=== PATIENT | female | born 1960 | race Caucasian/White ===

== ENCOUNTER 2017-04-27 10:46 | Outpatient (CLI) | payer BC ==
--- NOTE | 2017-04-28 18:38 | Mammography Report ---
DIGITAL SCREENING MAMMOGRAM: 04/27/2017 CLINICAL INDICATION: A 57-year-old for screening. COMPARISON: 04/2016, 01/2015, 10/2013, 06/2012, 01/2011, 03/2010. TECHNIQUE: Routine CC and MLO projections were obtained of the breasts. The breasts demonstrate scattered fibroglandular densities bilaterally. Punctate, typically benign c alcifications are present. No suspicious masses, clustered microcalcifications, or regions of abigail ectural distortion are identified. IMPRESSION: BENIGN FINDINGS. RECOMMENDATION: ROUTINE ANNUAL SCREENING UNLESS OTHERWISE CLINICALLY INDICATED. BIRADS CATEGORY: 2, BENIGN FINDINGS. STANDARD QUALIFYING STATEMENTS 1. This examination was reviewed with the aid of Computed-Aided Detection (CAD). 2. A negative or benign imaging report should not delay biopsy if clinically suspicious findings are present. Consider surgical consultation if warranted. More than 5% of cancers are not identified b y imaging. 3. Dense breasts may obscure an underlying neoplasm. JOB #: [id number] EXT JOB #:[id number]
== END 2017-04-27 10:47 | disposition home or self-care (01) ==
LOC: DI 10:46
PROVIDERS: ATTEND Physician Assistant Medical
DX: Z12.31 Encounter for screening mammogram for malignant neoplasm of breast (principal)
CPT/HCPCS: 77067

== ENCOUNTER 2018-10-17 08:21 | Outpatient (CLI) | payer OTHER ==
--- NOTE | 2018-10-17 09:21 | Mammography Report ---
Reason: SCREENING MAMMO Procedure Date: 10/17/2018 Accession Number: [id number] / [id number] Procedure: IGGY - Screening Mammo w/Rubén CPT Code: FULL RESULT: EXAM: Screening Mammo w/Rubén DATE: 10/17/2018 8:46 AM CLINICAL HISTORY: Screening examination. No reported risk factors. TECHNIQUE: (B) - Bilateral CC and MLO views were obtained. COMPARISON: 04/27/2017 through 06/14/2012. PARENCHYMAL PATTERN: (F) - The breast(s) demonstrate(s) diffuse fatty replacement. FINDINGS: There are no suspicious masses, calcifications, or areas of distortion. IMPRESSION: Negative examination. BI-RADS category 1. RECOMMENDATION: (ANNUAL) - Recommend routine annual screening mammography. BI-RADS CATEGORY: (1) - Negative. STANDARD QUALIFYING STATEMENTS: 1. This examination was not reviewed with the aid of Computer-Aided Detection (CAD). 2. A negative or benign imaging report should not preclude biopsy if clinically suspicious findings are present. 3. Dense breasts may obscure an underlying neoplasm. 4. This examination was reviewed with the aid of 3D breast imaging (tomosynthesis).
== END 2018-10-17 08:22 | disposition home or self-care (01) ==
LOC: DI 08:21
DX: Z12.31 Encounter for screening mammogram for malignant neoplasm of breast (principal)
CPT/HCPCS: 77063; 77067

== ENCOUNTER 2019-08-03 09:21 | Outpatient (CLI) | payer OTHER ==
[2019-08-03 13:25] LABS: BASOPHILS # (AUTO) 0.1 10^3/uL (0.0-0.1); BASOPHILS % (AUTO) 0.8 %; EOSINOPHILS # (AUTO) 0.2 10^3/uL (0.0-0.7); EOSINOPHILS % (AUTO) 2.8 %; HGB - HEMOGLOBIN 14.3 g/dL (12.0-16.0); LYMPHOCYTES # (AUTO) 1.8 10^3/uL (1.5-3.5); LYMPHOCYTES % (AUTO) 27.8 %; MEAN CORPUSCULAR HEMOGLOBIN 28.9 pg (27.0-31.0); MEAN CORPUSCULAR HGB CONC 32.3 g/dL (32.0-36.0); MEAN CORPUSCULAR VOLUME 89.7 fL (81.0-99.0); MEAN PLATELET VOLUME 10.8 fL (7.9-10.8); MONOCYTES # (AUTO) 0.5 10^3/uL (0.0-1.0); MONOCYTES % (AUTO) 7.6 %; NEUTROPHILS # (AUTO) 3.9 10^3/uL (1.5-6.6); NEUTROPHILS % (AUTO) 60.7 %; PLT - PLATELET COUNT 193 10^3/uL (130-450); RED BLOOD COUNT 4.94 10^6/uL (4.20-5.40); RED CELL DISTRIBUTION WIDTH 11.9 % (12.0-15.0); WHITE BLOOD COUNT 6.3 x10^3/uL (4.8-10.8)
[2019-08-03 13:41] LABS: ALBUMIN 4.1 g/dL (3.2-5.5); ALBUMIN/GLOBULIN RATIO 1.4 (1.0-2.2); ALKALINE PHOSPHATASE 53 IU/L (42-121); ALT ALANINE AMINOTRANSFERASE 19 IU/L (10-60); AST ASPARTATE AMINOTRANSFERASE 19 IU/L (10-42); BILIRUBIN,TOTAL 0.5 mg/dL (0.2-1.0); BUN - BLOOD UREA NITROGEN 19 mg/dL (6-20); CALCIUM 9.5 mg/dL (8.5-10.3); CARBON DIOXIDE - CO2 27 mmol/L (21-32); CHLORIDE 105 mmol/L (101-111); CHOL/HDL RATIO 3.7 (<4.4); CHOLESTEROL 192 mg/dL; CREATININE 0.9 mg/dL (0.4-1.0); GFR - MDRD 64 (>89); GLUCOSE 107 mg/dL (70-100); HDL CHOLESTEROL 52 mg/dL; LDL CHOLESTEROL,CALCULATED 124 mg/dL; LDL/HDL RATIO 2.4 (<4.4); SODIUM 139 mmol/L (135-145); VLDL CHOLESTEROL 16 mg/dL
== END 2019-08-03 09:22 | disposition home or self-care (01) ==
LOC: LAB.WCP 09:21
PROVIDERS: ATTEND Family Medicine
DX: I10 Essential (primary) hypertension (principal); E78.9 Disorder of lipoprotein metabolism, unspecified; E03.9 Hypothyroidism, unspecified
CPT/HCPCS: 36415; 80053; 80061; 83721; 84443; 85025

== ENCOUNTER 2019-11-07 08:00 | Outpatient (CLI) | payer OTHER ==
[2019-11-07 13:36] LABS: CALCIUM 9.6 mg/dL (8.5-10.3); CREATININE 0.7 mg/dL (0.4-1.0)
[2019-11-07 13:43] LABS: HB2 TOTAL 14.4 g/dL; HEMOGLOBIN A1C 0.54 g/dL; HEMOGLOBIN A1C % 5.6 % (4.6-6.2)
== END 2019-11-07 23:59 | disposition home or self-care (01) ==
LOC: LAB.WCP 08:00
PROVIDERS: ATTEND Physician Assistant Medical
DX: R73.9 Hyperglycemia, unspecified (principal)
CPT/HCPCS: 36415; 80048; 83036

== ENCOUNTER 2019-12-04 15:04 | Outpatient (CLI) | payer OTHER ==
--- NOTE | 2019-12-04 15:48 | SLEEP CARE CONSULTATION ---
Information from patient questionnaire entered by Sheri Quinn. I have reviewed and concur with the information entered by Sheri Quinn. This document represents the service I personally performed and the decisions made by me, Gretchen Simpson MD, [facility]. History of Present Illness Service Date and Time: 12/04/2019 1504 Reason for Visit: New patient Chief Complaint: reports: Unrefreshed sleep, Snoring, Excessive daytime sleepiness, Fatigue Duration of Symptoms: 2-3 years Usual bedtime: 10:30 - 11 pm Time it takes to fall asleep: 30-60 minutes Snores at night: Yes Observed to quit breathing while asleep: No Sleeps alone due to snoring: No Number of times waking at night: 2-3 Reasons for waking at night: reports: Pain, Bathroom Toss, Turn, or Twitch while sleeping: No Recalls having dreams: Yes Usually gets out of bed at: 8-9 am Feels refreshed in the morning: No Morning headache: No Sleepy or fatigued during the day: Yes Ever fallen asleep while driving: No Takes day naps: Yes Dreams during day naps: Yes Prior sleep studies: No Additional HPI information: The patient was referred here first by her PCP because of hypertension, then later by her negative retoucher for tachycardia and a "heart damage" found on the ECHO. She complains of occasional insomnia. She snores according to her . She has never been witnessed to stop breathing. She takes melatonin and occasionally alprazolam to help her fall asleep. Her bedtime is around 11 pm and her get up time is around 8:30 am (9.5 hours in bed on the average). 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 Patient is and lives in [place]. Have you smoked in the past 12 months: No Alcohol use: No Caffeine use: Yes Caffeine amount and frequency: 1-2 cups of coffee a day Family History Family history of sleep disordered breathing: Yes Family Hx Sleep Apnea: Other: Snoring (sons) Allergies and Home Medications Drug allergies reviewed: Yes Home medication list reviewed: Yes Review of Systems Weight loss over past 5 years: 30 Cardiovascular: reports: high blood pressure, palpitations, irregular heart rate or pulse Respiratory: denies: shortness of breath, wheeze, sputum production, chronic cough, other Gastrointestinal: denies: heartburn, difficulty swallowing, nausea, vomitting, diarrhea, abdominal pain, other Urinary: reports: urgency Neurological: denies: headaches, seizure, head trauma, disorientation, speech dysfunction, gait or balance problems, fainting or unconsciousness, other Psychiatric: reports: anxiety Ear/Nose/Throat: reports: nasal congestion, sinus problems, dry mouth/throat, tonsillectomy, wisdom teeth removed Endocrine: reports: sluggishness, unexplained weakness Musculoskeletal: reports: joint pain, neck pain, back pain, muscle pain or cramping Immunologic: reports: sneezing Physical Exam Vital signs obtained and entered by: Exam was deferred to minimize unnecessary exposure during pandemic Height: 5 ft 9 in Weight: 213 lb 6.4 oz Body Mass Index: 31.5 BMI Classification: Obese Impression and Plan IMPRESSION: 1. Possible Obstructive Sleep Apnea-Hypopnea Syndrome, as suggested by history of loud snoring, frequent awakenings during the night, unrefreshed sleep, and fatigue. Narrow oropharynx and obesity are common predisposing factors for obstructive sleep apnea-hypopnea syndrome. Untreated obstructive sleep apnea can also cause hypertension and cardiac arrhythmia. Pathophysiology of sleep- disordered breathing was discussed. I recommend proceeding to polysomnography to confirm the diagnosis and to assess severity. If she has significant sleep d isordered breathing, a manual CPAP titration study will also be performed to find the optimal treatment pressure. I informed the patient of what the sleep studies involve and after some discussion, she agreed to proceed. Plan: 1. Schedule an in-laboratory polysomnography 2. Avoid long distance driving or when feeling sleepy. 3. Avoid alcohol, sedative and muscle relaxant around bedtime. 4. Attempt to lose weight. 5. Return in 1 to 2 weeks after the study to discuss results and initiate therapy. Visit Type: In Office Time Spent with Patient (minutes): 15 Provider Statement: I spent 100% of the Face to Face Visit with the patient with greater than 50% spent counseling the patient and coordination of care.
== END 2019-12-04 15:05 | disposition home or self-care (01) ==
LOC: SC 15:04
PROVIDERS: ATTEND Internal Medicine Pulmonary Disease
DX: R06.83 Snoring (principal); G47.10 Hypersomnia, unspecified; G47.8 Other sleep disorders; I10 Essential (primary) hypertension; I51.9 Heart disease, unspecified; E66.9 Obesity, unspecified; Z68.31 Body mass index [BMI] 31.0-31.9, adult
CPT/HCPCS: 99203; 99212

== ENCOUNTER 2019-12-18 08:00 | Outpatient (CLI) | payer OTHER ==
[2019-12-18 12:32] LABS: BASOPHILS # (AUTO) 0.1 10^3/uL (0.0-0.1); EOSINOPHILS # (AUTO) 0.1 10^3/uL (0.0-0.7); HGB - HEMOGLOBIN 14.2 g/dL (12.0-16.0); LYMPHOCYTES # (AUTO) 1.5 10^3/uL (1.5-3.5); LYMPHOCYTES % (AUTO) 29.3 %; MEAN CORPUSCULAR HEMOGLOBIN 30.5 pg (27.0-31.0); MEAN CORPUSCULAR HGB CONC 33.6 g/dL (32.0-36.0); MEAN PLATELET VOLUME 10.5 fL (7.9-10.8); MONOCYTES # (AUTO) 0.3 10^3/uL (0.0-1.0); MONOCYTES % (AUTO) 5.1 %; NEUTROPHILS # (AUTO) 3.2 10^3/uL (1.5-6.6); NEUTROPHILS % (AUTO) 62.4 %; PLT - PLATELET COUNT 188 10^3/uL (130-450); RED BLOOD COUNT 4.65 10^6/uL (4.20-5.40); RED CELL DISTRIBUTION WIDTH 11.9 % (12.0-15.0); WHITE BLOOD COUNT 5.1 x10^3/uL (4.8-10.8)
== END 2019-12-18 23:59 | disposition home or self-care (01) ==
LOC: LAB.WCP 08:00
PROVIDERS: ATTEND Physician Assistant Medical
DX: R51 Headache (principal)
CPT/HCPCS: 36415; 85025; 85651; 86140

== ENCOUNTER 2019-12-25 19:27 | Outpatient (CLI) | payer OTHER | END 2019-12-25 19:28 | disposition home or self-care (01) | LOC: SC 19:27 | PROVIDERS: ATTEND Internal Medicine Pulmonary Disease | DX: G47.33 Obstructive sleep apnea (adult) (pediatric) (principal); E66.9 Obesity, unspecified; Z68.31 Body mass index [BMI] 31.0-31.9, adult | CPT/HCPCS: 95810 ==

== ENCOUNTER 2020-02-07 09:19 | Outpatient (CLI) | payer OTHER ==
--- NOTE | 2020-02-08 09:08 | Mammography Report ---
BILATERAL DIGITAL SCREENING MAMMOGRAM 3D/2D: 02/07/2020 CLINICAL: Routine screening. Comparison is made to exams dated: 10/17/2018 mammogram, 04/27/2017 mammogram, and 04/15/2016 mammogram - [facility]. There are scattered fibroglandular elements in both breasts. No significant masses, calcifications, or other findings are seen in either breast. There has been no significant interval change. IMPRESSION: NEGATIVE There is no mammographic evidence of malignancy. A 1 year screening mammogram is recommended. This exam was interpreted at Station ID: [id number]. NOTE: For mammograms, a report in lay terms will be sent to the patient. Approximately 15% of breast malignancies will not be visualized mammographically. In the management of a palpable breast mass, a negative mammogram must not discourage biopsy of a clinically suspicious lesion. Electronically Signed By: Jose Giron M.D. ddp/penrad:02/07/2020 11:47:13 ACR BI-RADS Category 1: Negative 3341F PARENCHYMAL PATTERN: (A) - The breast(s) demonstrate(s) scattered fibroglandular densities. BI-RADS CATEGORY: (1) - 1 RECOMMENDATION: (ANNUAL) - Recommend routine annual screening mammography. [id number] 1 year screening LATERALITY: (B)
== END 2020-02-07 09:20 | disposition home or self-care (01) ==
LOC: DI.N 09:19
DX: Z12.31 Encounter for screening mammogram for malignant neoplasm of breast (principal)
CPT/HCPCS: 77063; 77067

== ENCOUNTER 2020-04-08 09:30 | Outpatient (CLI) | payer OTHER | END 2020-04-08 09:31 | disposition home or self-care (01) | LOC: COV 09:30 | PROVIDERS: ATTEND Family Medicine | DX: U07.1 COVID-19 (principal) ==

== ENCOUNTER 2020-04-24 09:47 | Outpatient (CLI) | payer OTHER ==
--- NOTE | 2020-04-24 10:39 | SLEEP CARE CONSULTATION ---
Information from patient questionnaire entered by Traci Sheehan. I have reviewed and concur with the information entered by Traci Sheehan. This document represents the service I personally performed and the decisions made by me, Kalli Arredondo ARNP. History of Present Illness Service Date and Time: 04/24/2020 09 Previous diagnosis: Moderate, Obstructive Sleep Apnea-Hypopnea Syndrome AHI: 23.9 Reason for follow up: first compliance (set up 02/18) Equipment type: CPAP Equipment obtained from: [email or web address] (getting supplies as needed) Mask style: Nasal (Dream Wisp) Backup mask available: Yes (other mask) Last cushion change: 4 weeks Prior sleep studies: No Year and Where: 2019 [facility] Type of Sleep Study: Polysomnography HPI additional information: ARAVIND LAZARO was diagnosed to have moderate, AHI 23.9, obstructive sleep apnea- hypopnea syndrome and returned today for CPAP therapy first compliance follow- up. Sleep Study - Results Prior sleep studies: No CPAP Compliance Data - Data Reviewed with Patient Average duration of nightly device use: 8 h 4 min Compliance rate %: 85 Current pressure setting (cmH2O): 4-5 Humidity settin Heated hose settin Average residual AHI: 10.7 Central apnea: 0.5 Obstructive apnea: 2.4 Hypopnea: 7.9 Average large leak: 6 min 32 sec Subjective Missed days of use due to: reports: illness Patient concerns: reports: condensation in mask/hose (very little), nasal congestion (when she was ill, but is better now), dry mouth, nose, throat. denies: aerophagia, mask discomfort, air blowing in eyes, mask leak noise, epistaxis, other Observed to snore while using device: No (not that she knows of) Current pressure setting perceived as: comfortable On therapy, patient: reports: sleeping better, awakening more refreshed, being more awake and alert during the day, more rested overall. denies: drowsiness while driving Initial [place] Sleepiness Scale score: 11 (in 2019) Allergies and Home Medications Drug allergies reviewed: Yes (sulfa) Home medication list reviewed: Yes (no changes) Review of Systems Review of systems same as previous: No (Covid virus 3 weeks ago; Heart cath 03/20/20 good results) Physical Exam Heart Rate: 78 O2 Saturation: 93 Height: 5 ft 9 in Weight: 219 lb Body Mass Index: 32.3 BMI Classification: Obese Impression and Plan 1. Obstructive Sleep Apnea-Hypopnea Syndrome, moderate, with good treatment compliance and poor apnea control with elevated residual AHI. On CPAP therapy, the patient has better sleep quality and is more rested overall. I will adjust the APAP pressure to 5-7 cm H2O to try to reduce the residual AHI. She is to let me know if she develops problems with headaches or aerophagia. She has had some dry mouth, worse in the morning. Oral dryness can be reduced by adjusting humidity setting higher or heated hose lower or by adjusting both settings. Oral instructions given on how to change humidity and heated hose settings with rationale explaining why to change. Patient's apnea severity and rationale for treatment to reduce apnea, improve sleep quality and reduce cardiovascular and cerebrovascular events was reviewed. I also reviewed the benefit of consistent device use of CPAP for hypertension, arrhythmia, gastric reflux, and anxiety. * Changeauto CPAP pressure to 5-7 cmH2O * Notify me if snoring with mask or feeling that the pressure is too much or too little * Attempt to lose weight * Call this office if any problems using CPAP * Return for follow up in 1-2 months, or sooner if concerns arise Counseling Topics: Spare mask, Weight loss health impact Visit Type: In Office Time Spent with Patient (minutes): 21 Provider Statement: I spent 100% of the Face to Face Visit with the patient with greater than 50% spent counseling the patient and coordination of care.
== END 2020-04-24 09:48 | disposition home or self-care (01) ==
LOC: SC 09:47
PROVIDERS: ATTEND Nurse Practitioner Family
DX: G47.33 Obstructive sleep apnea (adult) (pediatric) (principal); E66.9 Obesity, unspecified; Z68.32 Body mass index [BMI] 32.0-32.9, adult
CPT/HCPCS: 99212; 99213

== ENCOUNTER 2020-06-02 13:48 | Outpatient (CLI) | payer OTHER ==
--- NOTE | 2020-06-02 14:26 | SLEEP CARE CONSULTATION ---
Information from patient questionnaire entered by Traci Sheehan. I have reviewed and concur with the information entered by Traci Sheehan. This document represents the service I personally performed and the decisions made by me, Kalli Arredondo ARNP. History of Present Illness Service Date and Time: 06/02/2020 1348 Previous diagnosis: Moderate, Obstructive Sleep Apnea-Hypopnea Syndrome AHI: 23.9 Reason for follow up: other (6-WEEK F/U - PRESSURE CHANGE) Equipment obtained from: [employer] ([place]; getting supplies as needed) Mask style: Nasal Mask brand: Respironics (Wisp) Backup mask available: Yes (other mask) Last cushion change: month Prior sleep studies: No Year and Where: [address] [facility] Type of Sleep Study: Polysomnography HPI additional information: ARAVIND LAZARO was diagnosed to have moderate, AHI 23.9, obstructive sleep apnea- hypopnea syndrome and returned today for CPAP therapy 6 week pressure change follow-up. Sleep Study - Results Prior sleep studies: No CPAP Compliance Data - Data Reviewed with Patient Average duration of nightly device use: 7 h 51 min Compliance rate %: 93.3 Current pressure setting (cmH2O): 5-7 Humidity settin Heated hose settin Average residual AHI: 8.6 Average large leak: 1 min 49 sec Subjective Missed days of use due to: reports: travel (2 nights) Patient concerns: denies: aerophagia, mask discomfort, air blowing in eyes, mask leak noise, condensation in mask/hose, nasal congestion, dry mouth, nose, throat, epistaxis, other Observed to snore while using device: No Current pressure setting perceived as: too low On therapy, patient: reports: sleeping better, awakening more refreshed, being more awake and alert during the day, more rested overall. denies: drowsiness while driving Initial [place] Sleepiness Scale score: 11 (in 2020) Current [place] Sleepiness Scale score: 8 Allergies and Home Medications Drug allergies reviewed: Yes (sulfa) Home medication list reviewed: Yes (no changes) Review of Systems Review of systems same as previous: Yes (no changes) Physical Exam Heart Rate: 61 O2 Saturation: 99 Height: 5 ft 9 in Weight: 221 lb Body Mass Index: 32.6 BMI Classification: Obese Impression and Plan 1. Obstructive Sleep Apnea-Hypopnea Syndrome, moderate, with good treatment compliance and fair apnea control with elevated residual AHI of 8.6. On CPAP therapy, the patient has better sleep quality and is more rested overall. She does feel like the pressure is too low. The patients pressure will be changed to auto CPAP 6-8 cmH20 for elevation of residual AHI. Patient advised to contact me if pressure change is uncomfortable so that it can be adjusted. Goals for apnea control discussed. Patient's apnea severity and rationale for treatment to reduce apnea, improve sleep quality and reduce cardiovascular and cerebrovascular events was reviewed. I also reviewed the benefit of consistent device use of CPAP for hypertension, arrhythmia, gastric reflux, and depression/anxiety. * Change auto CPAP pressure to 6-8 cmH2O * Notify me if snoring with mask or feeling that the pressure is too much or too little * Attempt to lose weight * Call this office if any problems using CPAP * Return for follow up in 1-2 months , or sooner if concerns arise Counseling Topics: Spare mask, Weight loss health impact Visit Type: In Office Time Spent with Patient (minutes): 17 Provider Statement: I spent 100% of the Face to Face Visit with the patient with greater than 50% spent counseling the patient and coordination of care.
== END 2020-06-02 13:49 | disposition home or self-care (01) ==
LOC: SC 13:48
PROVIDERS: ATTEND Nurse Practitioner Family
DX: G47.33 Obstructive sleep apnea (adult) (pediatric) (principal); E66.9 Obesity, unspecified; Z68.32 Body mass index [BMI] 32.0-32.9, adult
CPT/HCPCS: 99212; 99213

== ENCOUNTER 2020-07-09 11:08 | Outpatient (CLI) | payer OTHER ==
--- NOTE | 2020-07-09 11:34 | SLEEP CARE CONSULTATION ---
Information from patient questionnaire entered by Sheri Quinn. I have reviewed and concur with the information entered by Sheri Quinn. This document represents the service I personally performed and the decisions made by , Kalli Arredondo ARNP. History of Present Illness Service Date and Time: 07/09/2020 1108 Previous diagnosis: Moderate, Obstructive Sleep Apnea-Hypopnea Syndrome AHI: 23.9 (in 2019) Reason for follow up: one month (with pressure change) Equipment type: CPAP Equipment obtained from: [employer]; getting supplies as needed) Mask style: Nasal Backup mask available: No (will keep old mask when replaced for backup) Last cushion change: Tuesday Prior sleep studies: Yes Year and Where: 2019 [facility] Type of Sleep Study: Polysomnography HPI additional information: ARAVIND LAZARO was diagnosed to have moderate, AHI 23.9, obstructive sleep apnea- hypopnea syndrome and returned today for CPAP therapy one month pressure change follow-up. CPAP Compliance Data - Data Reviewed with Patient Average duration of nightly device use: 6 hr 44 min Compliance rate %: 86.7 Current pressure setting (cmH2O): 5-7 Humidity settin Heated hose settin Average residual AHI: 9.5 Central apnea: 0.5 Obstructive apnea: 2.1 Hypopnea: 6.9 Average large leak: 2 min 15 sec Subjective Missed days of use due to: reports: other Patient concerns: reports: condensation in mask/hose, dry mouth, nose, throat. denies: aerophagia, mask discomfort, air blowing in eyes, mask leak noise, nasal congestion, epistaxis, other Observed to snore while using device: No Current pressure setting perceived as: too low On therapy, patient: reports: sleeping better, awakening more refreshed, being more awake and alert during the day, more rested overall. denies: drowsiness while driving Initial [place] Sleepiness Scale score: 11 (in 2019) Current [place] Sleepiness Scale score: 6 Allergies and Home Medications Drug allergies reviewed: Yes (Sulfa) Home medication list reviewed: Yes (no changes) Review of Systems Review of systems same as previous: Yes (no changes) Physical Exam Heart Rate: 60 O2 Saturation: 94 Height: 5 ft 9 in Weight: 222 lb Body Mass Index: 32.8 BMI Classification: Obese Impression and Plan 1. Obstructive Sleep Apnea-Hypopnea Syndrome, moderate, with good treatment compliance and fair apnea control with elevated residual AHI. On CPAP therapy, the patient has better sleep quality and is more rested overall. I did write for a change in pressure at her last appointment but this was never changed on her machine. The patients pressure will be changed to autoCPAP 7-9 cmH20 for elevation of residual AHI. She was advised that she can bring her machine into the office and we can change her pressure manually to ensure this is changed. Patient advised to contact me if pressure change is uncomfortable so that it can be adjusted. Goals for apnea control discussed. Patient tried to increase her humidity but she got a lot more condensation and was unable to get it decreased. She continues to have mouth dryness. I reviewed again with her that oral dryness can be reduced by adjusting humidity setting higher or heated hose lower or by adjusting both settings. Patient advised that chronic oral dryness can affect dental health. Patient's apnea severity and rationale for treatment to reduce apnea, improve sleep quality and reduce cardiovascular and cerebrovascular events was reviewed. I also reviewed the benefit of consistent device use of CPAP for hypertension, arrhythmia, gastric reflux, and depression/anxiety. * Change auto CPAP pressure to 7-9 cmH2O * Notify me if snoring with mask or feeling that the pressure is too much or too little * Attempt to lose weight * Call this office if any problems using CPAP * Return for follow up in 1-2 months, or sooner if concerns arise Counseling Topics: Spare mask, Weight loss health impact Visit Type: In Office Time Spent with Patient (minutes): 20 Provider Statement: I spent 100% of the Face to Face Visit with the patient with greater than 50% spent counseling the patient and coordination of care.
== END 2020-07-09 11:09 | disposition home or self-care (01) ==
LOC: SC 11:08
PROVIDERS: ATTEND Nurse Practitioner Family
DX: G47.33 Obstructive sleep apnea (adult) (pediatric) (principal); E66.9 Obesity, unspecified; Z68.32 Body mass index [BMI] 32.0-32.9, adult
CPT/HCPCS: 99212; 99213

== ENCOUNTER 2020-07-29 11:01 | Outpatient (CLI) | payer OTHER ==
--- NOTE | 2020-07-29 16:27 | DEXA Report ---
PROCEDURE: Dexa Spine and/or Hip INDICATIONS: POSMENOPAUSAL TECHNIQUE: Dual energy x-ray absorptiometry (DXA) was performed on a [employer] System. Regions measur ed are the AP Spine, femoral neck, and if needed forearm. COMPARISON: None. FINDINGS: Lumbar Spine: Bone Mineral Density 1.566 g/cm/cm,T score 3.2, normal Left Hip: Bone Mineral Density 1.008 g/cm/cm,T score 0, normal Left Femoral Neck: Bone Mineral Density 0.924 g/cm/cm, T score -0.8, normal (T score greater or equal to -1.0: NORMAL) (T score from -1.1 to -2.4: OSTEOPENIA) (T score less than or equal to -2.5 to: OSTEOPOROSIS) Impression: No osteopenia or osteoporosis. Patients with diagnosis of osteoporosis or osteopenia should have regular bone mineral density assess ment. For those eligible for Medicare, routine testing is allowed once every 2 years. Testing frequ ency can be increased for patients who have rapidly progressing disease or for those who are receivin g medical therapy to restore bone mass. Reviewed by: Elsie Lane MD on 07/29/2020 4:25 PM PST Approved by: Elsie Lane MD on 07/29/2020 4:25 PM PST Station ID: [id number]
== END 2020-07-29 11:02 | disposition home or self-care (01) ==
LOC: DI 11:01
PROVIDERS: ATTEND Physician Assistant Medical
DX: Z78.0 Asymptomatic menopausal state (principal)

== ENCOUNTER 2020-08-19 10:27 | Outpatient (CLI) | payer OTHER ==
--- NOTE | 2020-08-19 10:58 | SLEEP CARE CONSULTATION ---
Information from patient questionnaire entered by Sheri Quinn. I have reviewed and concur with the information entered by Sheri Quinn. This document represents the service I personally performed and the decisions made by , Kalli Arredondo ARNP. History of Present Illness Service Date and Time: 08/19/2020 1027 Previous diagnosis: Moderate, Obstructive Sleep Apnea-Hypopnea Syndrome AHI: 23.9 (in 2019) Reason for follow up: other (6 week with pressure change) Equipment type: CPAP Equipment obtained from: [facility] ([place]; getting supplies as needed) Mask style: Nasal (Dreamwear Wisp) Mask brand: Respironics Backup mask available: No (will keep old mask when replaced for backup) Last cushion change: 2 weeks ago Prior sleep studies: Yes Year and Where: 2019 - [facility] Type of Sleep Study: Polysomnography HPI additional information: ARAVIND LAZARO was diagnosed to have moderate, AHI 23.9, obstructive sleep apnea- hypopnea syndrome and returned today for CPAP therapy 6 week pressure change follow-up. CPAP Compliance Data - Data Reviewed with Patient Average duration of nightly device use: 7 hr 12 min Compliance rate %: 95 (40 days) Current pressure setting (cmH2O): 7-9 Humidity settin Heated hose settin Average residual AHI: 5.4 Average large leak: 1 min 9 sec Subjective Missed days of use due to: reports: travel Patient concerns: reports: condensation in mask/hose (in mask), dry mouth, nose, throat (may be sleeping with mouth open, now only 1-2 times a week), other (heated tube will heat up and then goes cold). denies: aerophagia, mask discomfort, air blowing in eyes, mask leak noise, nasal congestion, epistaxis Observed to snore while using device: No (no complaints from ) Current pressure setting perceived as: comfortable On therapy, patient: reports: sleeping better, awakening more refreshed, being more awake and alert during the day, more rested overall. denies: drowsiness while driving Initial [place] Sleepiness Scale score: 11 (in 2019) Current [place] Sleepiness Scale score: 4 Allergies and Home Medications Drug allergies reviewed: Yes (sulfa) Home medication list reviewed: Yes (no changes) Review of Systems Review of systems same as previous: Yes (no changes) Physical Exam Heart Rate: 75 O2 Saturation: 95 Height: 5 ft 9 in Weight: 224 lb Body Mass Index: 33.0 BMI Classification: Obese Impression and Plan 1. Obstructive Sleep Apnea-Hypopnea Syndrome, moderate, with good treatment compliance and fair apnea control with minimal elevation of AHI. On CPAP therapy, the patient has better sleep quality and is more rested overall. She has had some condensation in the mask. She has her heated hose set at 5 and states she does not think is working right. She will feel the warm air and then it goes cold. She should be able to get a new hose and I will have her update the heated hose. She has been having some mouth dryness, some days her tongue has been very dry especially after the pressure was increased at last visit. Her humidity is at 5. She states after the first week, she is only dry 1-2 times a w [place]. Patient advised that chronic oral dryness can affect dental health and advised to follow up with dentist. In addition, there are oral dryness products that can be used to reduce dryness such as Biotene products, Dry mouth rinse and Xylomelts. Patient to discuss best option with dentist. She was also encouraged to try the chinstrap to see if she is sleeping with her mouth open and contributing to her oral dryness. She voiced understanding. She has minimal residual AHI of 5.4. The patients pressure will be changed to autoCPAP 9-10 cmH20 for elevation of residual AHI. Patient advised to contact me if pressure change is uncomfortable so that it can be adjusted. Goals for apnea control discussed. Patient's apnea severity and rationale for treatment to reduce apnea, improve sleep quality and reduce cardiovascular and cerebrovascular events was reviewed. I also reviewed the benefit of consistent device use of CPAP for hypertension, arrhythmia, gastric reflux, and depression/anxiety. * Change auto CPAP pressure to 9-10 cmH2O * Notify me if snoring with mask or feeling that the pressure is too much or too little * Attempt to lose weight * Call this office if any problems using CPAP * Return for follow up in 1-2 months, or sooner if concerns arise Counseling Topics: Spare mask, Weight loss health impact Visit Type: In Office Time Spent with Patient (minutes): 24 Provider Statement: I spent 100% of the Face to Face Visit with the patient with greater than 50% spent counseling the patient and coordination of care.
== END 2020-08-19 10:28 | disposition home or self-care (01) ==
LOC: SC 10:27
PROVIDERS: ATTEND Nurse Practitioner Family
DX: G47.33 Obstructive sleep apnea (adult) (pediatric) (principal); E66.9 Obesity, unspecified; Z68.33 Body mass index [BMI] 33.0-33.9, adult
CPT/HCPCS: 99212; 99213

== ENCOUNTER 2020-09-02 08:00 | Outpatient (CLI) | payer OTHER ==
[2020-09-02 12:04] LABS: BASOPHILS # (AUTO) 0.1 10^3/uL (0.0-0.1); BASOPHILS % (AUTO) 0.9 %; EOSINOPHILS # (AUTO) 0.1 10^3/uL (0.0-0.7); EOSINOPHILS % (AUTO) 1.8 %; HCT - HEMATOCRIT 39.8 % (37.0-47.0); HGB - HEMOGLOBIN 13.1 g/dL (12.0-16.0); LYMPHOCYTES # (AUTO) 1.8 10^3/uL (1.5-3.5); LYMPHOCYTES % (AUTO) 32.3 %; MEAN CORPUSCULAR HEMOGLOBIN 29.8 pg (27.0-31.0); MEAN CORPUSCULAR HGB CONC 32.9 g/dL (32.0-36.0); MEAN CORPUSCULAR VOLUME 90.7 fL (81.0-99.0); MEAN PLATELET VOLUME 10.5 fL (7.9-10.8); MONOCYTES # (AUTO) 0.3 10^3/uL (0.0-1.0); MONOCYTES % (AUTO) 6.3 %; NEUTROPHILS # (AUTO) 3.2 10^3/uL (1.5-6.6); NEUTROPHILS % (AUTO) 58.3 %; PLT - PLATELET COUNT 205 10^3/uL (130-450); RED BLOOD COUNT 4.39 10^6/uL (4.20-5.40); RED CELL DISTRIBUTION WIDTH 11.7 % (12.0-15.0); WHITE BLOOD COUNT 5.4 x10^3/uL (4.8-10.8)
[2020-09-02 12:32] LABS: THYROID STIMULATING HORMONE 1.2 uIU/mL (0.34-5.60)
[2020-09-02 12:33] LABS: ALBUMIN 4.1 g/dL (3.2-5.5); ALBUMIN/GLOBULIN RATIO 1.5 (1.0-2.2); ALKALINE PHOSPHATASE 53 IU/L (42-121); ALT ALANINE AMINOTRANSFERASE 19 IU/L (10-60); AST ASPARTATE AMINOTRANSFERASE 20 IU/L (10-42); BILIRUBIN,TOTAL 0.7 mg/dL (0.2-1.0); BUN - BLOOD UREA NITROGEN 19 mg/dL (6-20); CALCIUM 9.8 mg/dL (8.5-10.3); CARBON DIOXIDE - CO2 29 mmol/L (21-32); CHLORIDE 103 mmol/L (101-111); CHOL/HDL RATIO 2.8 (<4.4); CHOLESTEROL 185 mg/dL; CREATININE 0.8 mg/dL (0.4-1.0); GFR - MDRD 73 (>89); GLUCOSE 105 mg/dL (70-100); HDL CHOLESTEROL 65 mg/dL; LDL CHOLESTEROL,CALCULATED 102 mg/dL; LDL/HDL RATIO 1.6 (<4.4); SODIUM 139 mmol/L (135-145); TOTAL PROTEIN 6.9 g/dL (6.7-8.2); TRIGLYCERIDES 88 mg/dL; VLDL CHOLESTEROL 18 mg/dL
== END 2020-09-02 23:59 | disposition home or self-care (01) ==
LOC: LAB.WCP 08:00
PROVIDERS: ATTEND Physician Assistant Medical
DX: Z00.00 Encounter for general adult medical examination without abnormal findings (principal); E03.9 Hypothyroidism, unspecified; E78.5 Hyperlipidemia, unspecified
CPT/HCPCS: 36415; 80053; 80061; 83721; 84443; 85025

== ENCOUNTER 2020-10-08 10:21 | Outpatient (CLI) | payer OTHER ==
--- NOTE | 2020-10-08 10:53 | SLEEP CARE CONSULTATION ---
Information from patient questionnaire entered by Sheri Quinn. I have reviewed and concur with the information entered by Sheri Quinn. This document represents the service I personally performed and the decisions made by , Kalli Arredondo ARNP. History of Present Illness Service Date and Time: 10/08/2020 1021 Previous diagnosis: Moderate, Obstructive Sleep Apnea-Hypopnea Syndrome AHI: 23.9 (in 2019) Reason for follow up: other (6 week with pressure change) Equipment type: CPAP Equipment obtained from: [facility]; getting supplies as needed) Mask style: Nasal Backup mask available: Yes (old mask) Last cushion change: 1.5 weeks Prior sleep studies: Yes Year and Where: 2019 - [facility] Type of Sleep Study: Polysomnography HPI additional information: ARAVIND LAZARO was diagnosed to have moderate, AHI 23.9, obstructive sleep apnea- hypopnea syndrome and returned today for CPAP therapy 6 week pressure change follow-up. CPAP Compliance Data - Data Reviewed with Patient Average duration of nightly device use: 7 hr 21 min Compliance rate %: 95.2 (42 days) Current pressure setting (cmH2O): 9-10 Humidity settin Heated hose settin Average residual AHI: 2.7 Average large leak: 4 min 15 sec Subjective Missed days of use due to: reports: illness, travel Patient concerns: reports: dry mouth, nose, throat (stopped for a while but has increased with seasonal allergies). denies: aerophagia, mask discomfort, air blowing in eyes, mask leak noise, condensation in mask/hose, nasal congestion, epistaxis, other Observed to snore while using device: No Current pressure setting perceived as: comfortable On therapy, patient: reports: sleeping better, awakening more refreshed, being more awake and alert during the day, more rested overall. denies: drowsiness while driving Initial [place] Sleepiness Scale score: 11 (in 2020) Current [place] Sleepiness Scale score: 4 Allergies and Home Medications Home medication list reviewed: Yes (no new meds) Review of Systems Review of systems same as previous: Yes (no changes) Physical Exam Heart Rate: 60 O2 Saturation: 96 Height: 5 ft 9 in Weight: 226 lb Body Mass Index: 33.3 BMI Classification: Obese Impression and Plan 1. Obstructive Sleep Apnea-Hypopnea Syndrome, moderate, with good treatment compliance and good apnea control. On CPAP therapy, the patient has better sleep quality and is more rested overall. She states her heated hose will work for a short time and then stops. She talked to the DME and they replaced the hose. It is still doing it. I advised her to contact them again for suggestions on what to do, may need serviced. She is to contact this office if needs anything to accomplish this. She still has some mouth dryness, but she increased her humidity to 4 last night and it seemed better this morning. She has significant improvement of her sleep apnea and is satisfied with her treatment. I will have her follow up in 6 months. Patient's apnea severity and rationale for treatment to reduce apnea, improve sleep quality and reduce cardiovascular and cerebrovascular events was reviewed. I also reviewed the benefit of consistent device use of CPAP for hypertension, arrhythmia, gastric reflux, and depression/anxiety. * Continue autoCPAP pressure at 9-10 cmH2O * Notify me if snoring with mask or feeling that the pressure is too much or too little * Attempt to lose weight * Call this office if any problems using CPAP * Return for follow up in 6 months, or sooner if concerns arise Counseling Topics: Spare mask, Weight loss health impact Visit Type: In Office Time Spent with Patient (minutes): 15 Provider Statement: I spent 100% of the Face to Face Visit with the patient with greater than 50% spent counseling the patient and coordination of care.
== END 2020-10-08 10:22 | disposition home or self-care (01) ==
LOC: SC 10:21
PROVIDERS: ATTEND Nurse Practitioner Family
DX: G47.33 Obstructive sleep apnea (adult) (pediatric) (principal); E66.9 Obesity, unspecified; Z68.33 Body mass index [BMI] 33.0-33.9, adult
CPT/HCPCS: 99212

== ENCOUNTER 2020-11-03 08:00 | Outpatient (CLI) | payer OTHER ==
[2020-11-03 23:52] LABS: BACTERIAL VAGINOSIS DNA NEGATIVE (NEGATIVE); CANDIDA GLABRATA DNA NEGATIVE (NEGATIVE); CANDIDA GROUP DNA NEGATIVE (NEGATIVE); CANDIDA KRUSEI DNA NEGATIVE (NEGATIVE); TRICHOMONAS VAGINALIS DNA NEGATIVE (NEGATIVE)
== END 2020-11-03 23:59 | disposition home or self-care (01) ==
LOC: LAB.N 08:00
PROVIDERS: ATTEND Physician Assistant Medical
DX: N76.0 Acute vaginitis (principal); R30.0 Dysuria
CPT/HCPCS: 87086; 87181; 87661; 87801

== ENCOUNTER 2021-03-05 10:55 | Outpatient (CLI) | payer OTHER ==
--- NOTE | 2021-03-06 08:41 | Mammography Report ---
BILATERAL DIGITAL DIAGNOSTIC MAMMOGRAM 3D/2D: 03/05/2021 CLINICAL: Focal left breast pain. Comparison is made to exams dated: 02/07/2020 mammogram, 10/17/2018 mammogram, 04/27/2017 mammogram, mammogram, and 03/20/2015 mammogram - [facility]. There are scattered fibro glandular elements in both breasts. There is a benign irregular asymmetry in the right breast middle depth lateral region seen on the pit crane operator niocaudal view only. This is not seen in additional views. No mass seen at the site of focal pain in the left breast. No other significant masses, calcifications, or other findings are seen in either breast. IMPRESSION: INCOMPLETE: NEEDS ADDITIONAL IMAGING EVALUATION No mass seen at the site of focal pain in the left breast. -A targeted ultrasound is recommended and will immediately follow. Asymmetry in the right breast does not persist on additional views and is benign. This exam was interpreted at Station ID: [id number]. NOTE: For mammograms, a report in lay terms will be sent to the patient. Approximately 15% of breast malignancies will not be visualized mammographically. In the management of a palpable breast mass, a negative mammogram must not discourage biopsy of a clinically suspicious lesion. Electronically Signed By: Carlitos Tripatih M.D. slc/:03/05/2021 11:34:52 ACR BI-RADS Category 0: Incomplete 3340F PARENCHYMAL PATTERN: (A) - The breast(s) demonstrate(s) scattered fibroglandular densities. BI-RADS CATEGORY: (0) - 0 Ultrasound [id number] Immediate follow-up LATERALITY: (B)
--- NOTE | 2021-03-06 08:41 | Ultrasound Report ---
LIMITED ULTRASOUND OF LEFT BREAST: 03/05/2021 CLINICAL: Focal left breast pain. Comparison is made to exams dated: 03/05/2021 mammogram, 02/07/2020 mammogram, 10/17/2018 mammogram, mammogram, and 04/15/2016 mammogram - [facility]. Real-time ultrasound of the left breast 3-4 o'clock region was performed. [place] scale images of the r eal-time examination were reviewed. No significant abnormalities were seen sonographically in the left breast. IMPRESSION: NEGATIVE There is no sonographic evidence of malignancy in the region of focal pain. A 1 year screening mammogram is recommended. Exam findings were conveyed to the patient. Patient is advised to monitor for significant change. Cli nical follow-up as needed. This exam was interpreted at Station ID: [id number]. Electronically Signed By: Carlitos Tripathi M.D. slc/:03/05/2021 12:02:59 Ultrasound BI-RADS: 1 Negative BI-RADS CATEGORY: (1) - 1 RECOMMENDATION: (ANNUAL) - Recommend routine annual screening mammography. [id number] 1 year screening LATERALITY: (B)
== END 2021-03-05 10:56 | disposition home or self-care (01) ==
LOC: DI 10:55
PROVIDERS: ATTEND Physician Assistant Medical
DX: N64.4 Mastodynia (principal)

== ENCOUNTER 2021-04-08 12:47 | Outpatient (CLI) | payer OTHER ==
[2021-04-08 13:34] VITALS: BP 137/71
--- NOTE | 2021-04-08 13:34 | SLEEP CARE CONSULTATION ---
Information from patient questionnaire entered by Alycia Lu. I have reviewed and concur with the information entered by Alycia Lu. This document represents the service I personally performed and the decisions made by , Kalli Arredondo ARNP. History of Present Illness Service Date and Time: 04/08/2021 1247 Previous diagnosis: Moderate, Obstructive Sleep Apnea-Hypopnea Syndrome AHI: 23.9 (in 2019) Reason for follow up: six month Equipment type: CPAP Equipment obtained from: [facility] ([place]; getting supplies as needed) Mask style: Nasal Mask brand: Resmed Backup mask available: Yes (old mask) Last cushion change: just under 2 weeks Prior sleep studies: Yes Year and Where: 2019 - [facility] Type of Sleep Study: Polysomnography HPI additional information: ARAVIND LAZARO was diagnosed to have moderate, AHI 23.9, obstructive sleep apnea- hypopnea syndrome and returned today for CPAP therapy six month follow-up. Sleep Study - Results Type of Sleep Study: Polysomnography Prior sleep studies: Yes Year and Where: 2019 - [facility] CPAP Compliance Data - Data Reviewed with Patient Average duration of nightly device use: 6 hours 27 minutes Compliance rate %: 72.2 Current pressure setting (cmH2O): 9-10 Humidity settin Heated hose settin Average residual AHI: 3.1 Average large leak: 6 minutes 25 seconds Subjective Missed days of use due to: reports: travel Patient concerns: reports: dry mouth, nose, throat. denies: aerophagia, mask discomfort, air blowing in eyes, mask leak noise, condensation in mask/hose, nasal congestion, epistaxis, other Observed to snore while using device: No Current pressure setting perceived as: too low On therapy, patient: reports: sleeping better, awakening more refreshed, being more awake and alert during the day, more rested overall. denies: drowsiness while driving Initial [place] Sleepiness Scale score: 11 (in 2019) Current [place] Sleepiness Scale score: 4 Allergies and Home Medications Home medication list reviewed: Yes (no changes) Review of Systems Review of systems same as previous: Yes (no changes) Physical Exam Blood Pressure: 137/71 Cuff size: wrist Heart Rate: 63 O2 Saturation: 97 Height: 5 ft 9 in Weight: 227 lb Body Mass Index: 33.5 BMI Classification: Obese Impression and Plan 1. Obstructive Sleep Apnea-Hypopnea Syndrome, moderate, with good treatment compliance and good apnea control. On CPAP therapy, the patient has better sleep quality and is more rested overall. Patient has been having dry mouth. Her humidity is set at 4. Oral dryness can be reduced by adjusting humidity setting higher or heated hose lower or by adjusting both settings. Patient advised to increase her humidity to 5. She states she did not get a heated hose with her new Dreamstation 2. She called [facility] and they told her she needed a referral or prescription for this. I will write for a heated hose for her device. Patient has felt like she needs more pressure with this new device. Her residual AHI is 3.1. The patients pressure will be changed to autoCPAP 10-11 cmH20. Patient advised to contact me if pressure change is uncomfortable so that it can be adjusted. Goals for apnea control discussed. Patient was encouraged to lose weight for their overall health and to reduce apneas. Patient's apnea severity and rationale for treatment to reduce apnea, improve sleep quality and reduce cardiovascular and cerebrovascular events was reviewed. I also reviewed the benefit of consistent device use of CPAP for hypertension, arrhythmia, gastric reflux, depression and anxiety. * Change auto CPAP pressure to 10-11 cmH2O * Prescription for heated hose for Dreamstation 2, 1 per 3 month * Notify me if snoring with mask or feeling that the pressure is too much or too little * Attempt to lose weight * Call this office if any problems using CPAP * Return for follow up in 1 year, or sooner if concerns arise Counseling Topics: Spare mask, Weight loss health impact Visit Type: In Office Time Spent with Patient (minutes): 28 Provider Statement: I spent 100% of the Face to Face Visit with the patient with greater than 50% spent counseling the patient and coordination of care.
== END 2021-04-08 12:48 | disposition home or self-care (01) ==
LOC: SC 12:47
PROVIDERS: ATTEND Nurse Practitioner Family
DX: G47.33 Obstructive sleep apnea (adult) (pediatric) (principal); E66.9 Obesity, unspecified; Z68.33 Body mass index [BMI] 33.0-33.9, adult
CPT/HCPCS: 99212; 99213

== ENCOUNTER 2021-08-04 11:55 | Outpatient (CLI) | payer OTHER ==
[2021-08-04 18:44] LABS: BASOPHILS # (AUTO) 0.1 10^3/uL (0.0-0.1); EOSINOPHILS # (AUTO) 0.1 10^3/uL (0.0-0.7); EOSINOPHILS % (AUTO) 1.7 %; HCT - HEMATOCRIT 44.2 % (37.0-47.0); HGB - HEMOGLOBIN 14.9 g/dL (12.0-16.0); LYMPHOCYTES # (AUTO) 2.1 10^3/uL (1.5-3.5); LYMPHOCYTES % (AUTO) 25.9 %; MEAN CORPUSCULAR HEMOGLOBIN 29.6 pg (27.0-31.0); MEAN CORPUSCULAR HGB CONC 33.7 g/dL (32.0-36.0); MEAN CORPUSCULAR VOLUME 87.7 fL (81.0-99.0); MEAN PLATELET VOLUME 10.4 fL (7.9-10.8); MONOCYTES # (AUTO) 0.5 10^3/uL (0.0-1.0); MONOCYTES % (AUTO) 6.3 %; NEUTROPHILS # (AUTO) 5.3 10^3/uL (1.5-6.6); NEUTROPHILS % (AUTO) 64.6 %; PLT - PLATELET COUNT 254 10^3/uL (130-450); RED BLOOD COUNT 5.04 10^6/uL (4.20-5.40); RED CELL DISTRIBUTION WIDTH 11.4 % (12.0-15.0); WHITE BLOOD COUNT 8.2 x10^3/uL (4.8-10.8)
[2021-08-04 18:57] LABS: CREATININE 0.9 mg/dL (0.4-1.0); POTASSIUM 4.5 mmol/L (3.5-5.0)
== END 2021-08-04 11:56 | disposition home or self-care (01) ==
LOC: LAB.N 11:55
PROVIDERS: ATTEND Nurse Practitioner Family
DX: R10.9 Unspecified abdominal pain (principal); K57.32 Diverticulitis of large intestine without perforation or abscess without bleeding
CPT/HCPCS: 36415; 80048; 85025

== ENCOUNTER 2021-09-23 07:28 | Outpatient (CLI) | payer OTHER ==
[2021-09-23 11:54] LABS: BASOPHILS # (AUTO) 0.1 10^3/uL (0.0-0.1); BASOPHILS % (AUTO) 1.3 %; EOSINOPHILS # (AUTO) 0.2 10^3/uL (0.0-0.7); EOSINOPHILS % (AUTO) 3.2 %; HCT - HEMATOCRIT 39.9 % (37.0-47.0); HGB - HEMOGLOBIN 13.4 g/dL (12.0-16.0); LYMPHOCYTES # (AUTO) 1.8 10^3/uL (1.5-3.5); LYMPHOCYTES % (AUTO) 33.6 %; MEAN CORPUSCULAR HEMOGLOBIN 29.9 pg (27.0-31.0); MEAN CORPUSCULAR HGB CONC 33.6 g/dL (32.0-36.0); MEAN CORPUSCULAR VOLUME 89.1 fL (81.0-99.0); MEAN PLATELET VOLUME 10.9 fL (7.9-10.8); MONOCYTES # (AUTO) 0.5 10^3/uL (0.0-1.0); MONOCYTES % (AUTO) 8.3 %; NEUTROPHILS # (AUTO) 2.9 10^3/uL (1.5-6.6); NEUTROPHILS % (AUTO) 53.4 %; PLT - PLATELET COUNT 196 10^3/uL (130-450); RED BLOOD COUNT 4.48 10^6/uL (4.20-5.40); RED CELL DISTRIBUTION WIDTH 12.1 % (12.0-15.0); WHITE BLOOD COUNT 5.4 x10^3/uL (4.8-10.8)
[2021-09-23 12:42] LABS: ALBUMIN 4.1 g/dL (3.2-5.5); ALBUMIN/GLOBULIN RATIO 1.4 (1.0-2.2); ALKALINE PHOSPHATASE 60 IU/L (42-121); ALT ALANINE AMINOTRANSFERASE 28 IU/L (10-60); AST ASPARTATE AMINOTRANSFERASE 28 IU/L (10-42); BILIRUBIN,TOTAL 0.7 mg/dL (0.2-1.0); BUN - BLOOD UREA NITROGEN 21 mg/dL (6-20); CALCIUM 9.7 mg/dL (8.5-10.3); CARBON DIOXIDE - CO2 27 mmol/L (21-32); CHLORIDE 101 mmol/L (101-111); CHOLESTEROL 180 mg/dL; CREATININE 0.7 mg/dL (0.4-1.0); GFR - MDRD 85 (>89); GLUCOSE 106 mg/dL (70-100); HDL CHOLESTEROL 60 mg/dL; LDL CHOLESTEROL,CALCULATED 103 mg/dL; LDL/HDL RATIO 1.7 (<4.4); POTASSIUM 4.2 mmol/L (3.5-5.0); SODIUM 137 mmol/L (135-145); TOTAL PROTEIN 7.1 g/dL (6.7-8.2); TRIGLYCERIDES 84 mg/dL; VLDL CHOLESTEROL 17 mg/dL
[2021-09-23 12:51] LABS: THYROID STIMULATING HORMONE 0.68 uIU/mL (0.34-5.60)
== END 2021-09-23 07:29 | disposition home or self-care (01) ==
LOC: LAB.N 07:28
PROVIDERS: ATTEND Physician Assistant Medical
DX: Z00.00 Encounter for general adult medical examination without abnormal findings (principal); E03.9 Hypothyroidism, unspecified; E78.5 Hyperlipidemia, unspecified
CPT/HCPCS: 36415; 80053; 80061; 83721; 84443; 85025

== ENCOUNTER 2021-11-20 14:39 | Outpatient (CLI) | payer OTHER ==
--- NOTE | 2021-11-20 16:19 | Ultrasound Report ---
PROCEDURE: Duplex Aorta Limited INDICATIONS: ABD PAIN TECHNIQUE: Ultrasound images of the aorta were performed. COMPARISON: None. FINDINGS: Aorta velocity. Proximal 85 cm/s. Biphasic. Mid 71 cm/s. Biphasic. Distal 103 cm/s. Triphasic. Right lower extremity: LORRIE 123 cm/s. Biphasic. TIA 117 cm/s. Biphasic. OUTPATIENT DIETITIAN 97 cm/s. Triphasic. Left lower extremity: LORRIE 78 cm/s. Biphasic. TIA 66 cm/s. Biphasic. OUTPATIENT DIETITIAN 86 cm/s. Triphasic. IMPRESSION: No abdominal aortic aneurysm. No significant stenosis identified. Reviewed by: Kristofer Morales on 11/20/2021 4:18 PM PDT Approved by: Kristofer Morales on 11/20/2021 4:18 PM PDT Station ID: [id number]
== END 2021-11-20 14:40 | disposition home or self-care (01) ==
LOC: DI 14:39
PROVIDERS: ATTEND Registered Nurse
DX: R10.9 Unspecified abdominal pain (principal)
CPT/HCPCS: 93979

== ENCOUNTER 2022-04-29 07:32 | Outpatient (CLI) | payer OTHER ==
[2022-04-29 12:31] LABS: ESTIMATED AVERAGE GLUCOSE 123 mg/dL (70-100); HEMOGLOBIN A1c% 5.9 % (4.27-6.07)
[2022-04-29 12:59] LABS: ALBUMIN/GLOBULIN RATIO 1.2 (1.0-2.2); ALKALINE PHOSPHATASE 60 IU/L (42-121); ALT ALANINE AMINOTRANSFERASE 21 IU/L (10-60); AST ASPARTATE AMINOTRANSFERASE 22 IU/L (10-42); BILIRUBIN,TOTAL 0.8 mg/dL (0.2-1.0); BUN - BLOOD UREA NITROGEN 19 mg/dL (6-20); CALCIUM 9.9 mg/dL (8.5-10.3); CARBON DIOXIDE - CO2 30 mmol/L (21-32); CHLORIDE 102 mmol/L (101-111); CHOL/HDL RATIO 3.1 (<4.4); CHOLESTEROL 194 mg/dL; CREATININE 0.8 mg/dL (0.4-1.0); GFR - MDRD 72 (>89); GLUCOSE 99 mg/dL (70-100); HDL CHOLESTEROL 62 mg/dL; LDL CHOLESTEROL,CALCULATED 116 mg/dL; LDL/HDL RATIO 1.9 (<4.4); POTASSIUM 3.9 mmol/L (3.5-5.0); SODIUM 138 mmol/L (135-145); TOTAL PROTEIN 7.4 g/dL (6.7-8.2); TRIGLYCERIDES 82 mg/dL; VLDL CHOLESTEROL 16 mg/dL
== END 2022-04-29 07:33 | disposition home or self-care (01) ==
LOC: LAB.N 07:32
PROVIDERS: ATTEND Physician Assistant Medical
DX: E78.5 Hyperlipidemia, unspecified (principal); R73.9 Hyperglycemia, unspecified
CPT/HCPCS: 36415; 80053; 80061; 83036; 83721

== ENCOUNTER 2022-05-05 09:49 | Day surgery (SDC) | payer OTHER ==
[2022-05-05] MEDS ORDERED: LACTATED RINGERS 1,000 ML IV ONE (10:16)
--- NOTE | 2022-05-05 12:01 | ANESTHESIA ---
Pre-Anesthesia VS, & Labs - Diagnosis screening exam - Procedure colonoscopy Vital Signs: Temp Pulse Resp BP Pulse Ox O2 Flow Rate 36.0 C L 71 16 156/77 H 100 0 05/05/22 10:03 05/05/22 10:03 05/05/22 10:03 05/05/22 10:03 05/05/22 10:03 05/05/22 10:03 Height: 5 ft 9 in Weight (kg): 94 kg Body Mass Index: 30.6 BMI Classification: Obese - NPO >8 hours - Is Patient ?: No Home Medications and Allergies Home Medications: Ambulatory Orders ALPRAZolam [Alprazolam] 0.5 mg PO DAILY 05/04/22 Gabapentin [Neurontin] 600 mg PO DAILY 05/04/22 Levothyroxine [Synthroid] 100 mcg PO QDAC 05/04/22 Lisinopril [Zestril] 20 mg PO DAILY 05/04/22 Metoprolol Succinate [Kapspargo Sprinkle] 25 mg PO DAILY 05/04/22 Simvastatin [Zocor] 40 mg PO DAILY 05/04/22 hydroCHLOROthiazide [Hydrodiuril] 25 mg PO DAILY 05/04/22 ALPRAZolam [Alprazolam] 0.5 mg PO DAILY 05/04/22 Gabapentin [Neurontin] 600 mg PO DAILY 05/04/22 Levothyroxine [Synthroid] 100 mcg PO QDAC 05/04/22 Lisinopril [Zestril] 20 mg PO DAILY 05/04/22 Metoprolol Succinate [Kapspargo Sprinkle] 25 mg PO DAILY 05/04/22 Simvastatin [Zocor] 40 mg PO DAILY 05/04/22 hydroCHLOROthiazide [Hydrodiuril] 25 mg PO DAILY 05/04/22 Allergies/Adverse Reactions: Allergies Allergy/AdvReac Type Severity Reaction Status Date / Time Sulfa (Sulfonamide Allergy Verified 06/02/20 14:16 Antibiotics) Anes History & Medical History - Anesthetic History Anesthesia Complications: reports: No previous complications, Slow wake-up - Medical History Cardiovascular: reports: Hypertension, High cholesterol Pulmonary: reports: Sleep apnea, CPAP use Gastrointestinal: reports: None Urinary: reports: Kidney stones (history) Neuro: reports: None Musculoskeletal: reports: Chronic back pain (mid back) Endocrine/Autoimmune: reports: HyPOthyroidism Blood Disorders: reports: None Skin: reports: None Smoking Status: Never smoker Psychosocial: reports: No issues indicated History of Cancer?: No - Surgical History General: reports: Cholecystectomy, Colonoscopy Eyes Ears Nose Throat (EENT): reports: Tonsil/Adenoidectomy Gynecologic: reports: Tubal ligation Exam General: Alert, Oriented x3, Cooperative, No acute distress Dental: WNL Mouth Openin Fingerbreadth Neck Mobility: Normal Mallampati classification: II Thyromental Distance: 4-6 cm Mental/Cognitive Status: Alert/Oriented X3, Normal for patient Plan Anesthesia Type: General, Total IV Consent for Procedure(s) Verified and Reviewed: Yes Code Status: Attempt Resuscitation ASA classification: 2-Mild systemic disease Is this case an emergency?: No
[2022-05-05] MEDS ORDERED: fentaNYL 100 MCG/2 ML VIAL ONE (12:06)
[2022-05-05] MEDS ORDERED: PROPOFOL 500 MG/50 ML 500 MG/50 ML VIAL ONE (12:07)
[2022-05-05] MEDS ORDERED: LACTATED RINGERS 400 ML IV ONE (12:38)
[2022-05-05 13:03] VITALS: BP 121/72
--- NOTE | 2022-05-05 14:05 | ANESTHESIA POST OP EVALUATION ---
Anesthesia Post Eval - Post Anesthesia Eval Vitals: Last Vital Signs Temp 36.5 C 05/05/22 13:02 Pulse 74 05/05/22 13:02 Resp 15 05/05/22 13:02 BP 121/72 05/05/22 13:02 Pulse Ox 100 05/05/22 13:02 O2 Flow Rate 0 05/05/22 10:03 CV Function Including HR & BP: Stable Pain Control: Satisfactory Nausea & Vomiting: Negative Mental Status: Baseline Respiratory Status: Airway Patent Hydration Status: Satisfactory Anesthesia Complications: None
== END 2022-05-05 09:50 | disposition home or self-care (01) ==
LOC: SDS 09:49
PROVIDERS: ATTEND Surgery
DX: Z12.11 Encounter for screening for malignant neoplasm of colon (principal); K57.30 Diverticulosis of large intestine without perforation or abscess without bleeding; K64.8 Other hemorrhoids; I10 Essential (primary) hypertension; G47.30 Sleep apnea, unspecified; E66.9 Obesity, unspecified; Z68.30 Body mass index [BMI] 30.0-30.9, adult
CPT/HCPCS: 45378; J7120

== ENCOUNTER 2022-06-15 14:43 | Outpatient (CLI) | payer OTHER ==
[2022-06-15 15:11] VITALS: BP 128/70
--- NOTE | 2022-06-15 15:11 | SLEEP CARE CONSULTATION ---
Information from patient questionnaire entered by Dory Gan. I have reviewed and concur with the information entered by Dory Gan. This document represents the service I personally performed and the decisions made by me, Kalli Arredondo ARNP. History of Present Illness Service Date and Time: 06/15/2022 1443 Previous diagnosis: Moderate, Obstructive Sleep Apnea-Hypopnea Syndrome AHI: 23.9 (in 2019) Reason for follow up: annual (LAST SEEN 03/2021) Equipment type: CPAP (TODD, Dreamstation 2) Equipment obtained from: [employer] ([place]; getting supplies as needed) Mask style: Nasal (over the nose) Backup mask available: Yes (old mask) Last cushion change: 3-4 weeks ago Prior sleep studies: Yes Year and Where: 2019 - [facility] Type of Sleep Study: Polysomnography HPI additional information: ARAVIND LAZARO was diagnosed to have moderate, AHI 23.9, obstructive sleep apnea- hypopnea syndrome and returned today for CPAP therapy annual follow-up. Sleep Study - Results Type of Sleep Study: Polysomnography Prior sleep studies: Yes Year and Where: 2019 - [facility] CPAP Compliance Data - Data Reviewed with Patient Average duration of nightly device use: 5 hours 6 mins Compliance rate %: 65.6 (150/180 days used) Current pressure setting (cmH2O): 10-11 (avg 11.0) Average residual AHI: 3.3 Central apnea: 0.3 Obstructive apnea: 1.3 Average large leak: 0 Subjective Missed days of use due to: reports: illness, travel Patient concerns: reports: dry mouth, nose, throat (occasionl dry mouth; chin strap not working out). denies: aerophagia, mask discomfort, air blowing in eyes, mask leak noise, condensation in mask/hose, nasal congestion, epistaxis Observed to snore while using device: No Current pressure setting perceived as: too low On therapy, patient: reports: sleeping better, awakening more refreshed, being more awake and alert during the day, more rested overall. denies: drowsiness while driving Initial [place] Sleepiness Scale score: 11 (in 2019) Current [place] Sleepiness Scale score: 5 (06/15/22) Allergies and Home Medications Drug allergies reviewed: Yes (sulfa) Home medication list reviewed: Yes (no changes) Review of Systems Review of systems same as previous: Yes (colonoscopy, Apr 2022) Physical Exam Vital signs obtained and entered by: DORY Hutchison MA Blood Pressure: 128/70 (LEFT ARM) Cuff size: regular Heart Rate: 67 O2 Saturation: 95 Height: 5 ft 9 in Weight: 221 lb 6.4 oz Body Mass Index: 32.7 BMI Classification: Obese Impression and Plan 1. Obstructive Sleep Apnea-Hypopnea Syndrome, moderate, with good treatment compliance and good apnea control. On CPAP therapy, the patient has better sleep quality and is more rested overall. She is still having some mouth dryness. She tried to use a chin strap but it was just too much for her and she stopped using it. I advised her to try some mouth tapes to keep mouth closed. If this is not sufficient she may consider using a full face mask. She will let me know. Patient's apnea severity and rationale for treatment to reduce apnea, improve sleep quality and reduce cardiovascular and cerebrovascular events was reviewed. I also reviewed the benefit of consistent device use of CPAP for hypertension, arrhythmia, gastric reflux, depression and anxiety. 2. Obesity, unspecified. Currently patients BMI is 32.7. She has lost some weight since her last visit. Obesity increases the risk of apnea, CPAP pressure requirements and overall health risks especially cardiovascular and diabetes. Thus patient is advised to continue to try to lose weight. * Change auto CPAP pressure to 10-12 cmH2O * Update supplies * Notify me if snoring with mask or feeling that the pressure is too much or too little * Attempt to lose weight * Call this office if any problems using CPAP * Return for follow up in 1 year, or sooner if concerns arise Counseling Topics: Spare mask, Weight loss health impact Visit Type: In Office Time Spent with Patient (minutes): 20 Provider Statement: I spent 100% of the Face to Face Visit with the patient with greater than 50% spent counseling the patient and coordination of care.
== END 2022-06-15 14:44 | disposition home or self-care (01) ==
LOC: SC 14:43
PROVIDERS: ATTEND Nurse Practitioner Family
DX: G47.33 Obstructive sleep apnea (adult) (pediatric) (principal); E66.9 Obesity, unspecified; Z68.32 Body mass index [BMI] 32.0-32.9, adult
CPT/HCPCS: 99212; 99213

== ENCOUNTER 2022-09-23 10:48 | Outpatient (CLI) | payer OTHER ==
--- NOTE | 2022-09-24 09:23 | Mammography Report ---
BILATERAL DIGITAL SCREENING MAMMOGRAM 3D/2D: 09/23/2022 CLINICAL: Routine screening. Comparison is made to exams dated: 03/05/2021 ultrasound, 03/05/2021 mammogram, 02/07/2020 mammogram, mammogram, 04/27/2017 mammogram, and 04/15/2016 mammogram - [facility]. There are scattered areas of fibroglandular density in both breasts (category b / 25%-50% glandular t issue). There is a new 0.7 cm oval mass in the left breast central to the nipple middle depth. No other significant masses, calcifications, or other findings are seen in either breast. IMPRESSION: INCOMPLETE: NEEDS ADDITIONAL IMAGING EVALUATION The 0.7 cm oval mass in the left breast is indeterminate. Additional views with possible ultrasound are recommended. Based on the Tyrer Cuzick model (a risk assessment model) the patients lifetime risk is 7.5% and her 10 year risk is 3.3%. According to the ACR, ACS, and NCCN guidelines, an annual breast MRI exam karuna g with mammogram is recommended if the patients lifetime risk is 20% or greater. This exam was interpreted at Station ID: [id number]. NOTE: For mammograms, a report in lay terms will be sent to the patient. Approximately 15% of breast malignancies will not be visualized mammographically. In the management of a palpable breast mass, a negative mammogram must not discourage biopsy of a clinically suspicious lesion. Electronically Signed By: Philipp Matthews M.D. lc/:09/23/2022 14:14:09 ACR BI-RADS Category 0: Incomplete 3340F PARENCHYMAL PATTERN: (A) - The breast(s) demonstrate(s) scattered fibroglandular densities. BI-RADS CATEGORY: (0) - 0 Mammo and [place] [id number] Immediate follow-up LATERALITY: (B)
== END 2022-09-23 10:49 | disposition home or self-care (01) ==
LOC: DI.N 10:48
DX: Z12.31 Encounter for screening mammogram for malignant neoplasm of breast (principal); N63.42 Unspecified lump in left breast, subareolar

== ENCOUNTER 2022-10-21 10:22 | Outpatient (CLI) | payer OTHER ==
--- NOTE | 2022-10-22 10:41 | Ultrasound Report ---
LIMITED ULTRASOUND OF LEFT BREAST AND AXILLA: 10/21/2022 CLINICAL: Patient returns today to evaluate a focal asymmetry in the left breast. Comparison is made to exams dated: 10/21/2022 mammogram, 09/23/2022 mammogram, 03/05/2021 ultrasound, mammogram, 02/07/2020 mammogram, and 10/17/2018 mammogram - [facility]. Color flow and real-time ultrasound of the left breast 4 o'clock, and axilla regions were performed. Mccollum scale images of the real-time examination were reviewed. There is a 0.8 cm x 0.7 cm x 0.6 cm oval mass in the left breast at 4 o'clock middle depth 4 cm from the nipple. This oval mass is hypoechoic. This correlates with mammography findings. Color flow im aging demonstrates that there is vascularity present. No significant abnormalities were seen sonographically in the left axilla. IMPRESSION: SUSPICIOUS OF MALIGNANCY The 0.8 cm x 0.7 cm x 0.6 cm oval mass in the left breast is at a high suspicion for malignancy. An ultrasound guided biopsy is recommended. No enlarged left axillary lymph nodes. Exam findings were discussed with the patient by Dr. Lane. This exam was interpreted at Station ID: [id number]. Electronically Signed By: Carlitos Tripathi M.D. slc/:10/21/2022 11:45:11 Ultrasound BI-RADS: 4c High suspicion of malignancy BI-RADS CATEGORY: (4c) - High Susp Biopsy [id number] Immediate follow-up LATERALITY: (L)
--- NOTE | 2022-10-22 10:41 | Mammography Report ---
UNILATERAL LEFT DIGITAL DIAGNOSTIC MAMMOGRAM 3D/2D: 10/21/2022 CLINICAL: Patient returns today to evaluate an asymmetry in the left breast. Comparison is made to exams dated: 09/23/2022 mammogram, 03/05/2021 mammogram, 02/07/2020 mammogram, ultrasound, and 10/17/2018 mammogram - [facility]. There are scattered areas of fibroglandular density in the left breast (category b / 25%-50% glandula r tissue). There is a 0.7 cm oval mass in the left breast central to the nipple middle depth. No other significant masses or calcifications are seen in the breast. IMPRESSION: INCOMPLETE: NEEDS ADDITIONAL IMAGING EVALUATION The 0.7 cm oval mass in the left breast is indeterminate. A targeted ultrasound is recommended and will immediately follow. Based on the Tyrer Cuzick model (a risk assessment model) the patients lifetime risk is 7.5% and her 10 year risk is 3.3%. According to the ACR, ACS, and NCCN guidelines, an annual breast MRI exam karuna g with mammogram is recommended if the patients lifetime risk is 20% or greater. This exam was interpreted at Station ID: [id number]. NOTE: For mammograms, a report in lay terms will be sent to the patient. Approximately 15% of breast malignancies will not be visualized mammographically. In the management of a palpable breast mass, a negative mammogram must not discourage biopsy of a clinically suspicious lesion. Electronically Signed By: Carlitos Tripathi M.D. slc/:10/21/2022 11:23:25 ACR BI-RADS Category 0: Incomplete 3340F PARENCHYMAL PATTERN: (A) - The breast(s) demonstrate(s) scattered fibroglandular densities. BI-RADS CATEGORY: (0) - 0 Ultrasound [id number] Immediate follow-up LATERALITY: (B)
== END 2022-10-21 10:23 | disposition home or self-care (01) ==
LOC: DI 10:22
PROVIDERS: ATTEND Family Medicine
DX: N63.23 Unspecified lump in the left breast, lower outer quadrant (principal)

== ENCOUNTER 2022-10-30 11:34 | Outpatient (CLI) | payer OTHER ==
[2022-10-30 11:51] LABS: BASOPHILS # (AUTO) 0.1 10^3/uL (0.0-0.1); BASOPHILS % (AUTO) 1.1 %; EOSINOPHILS # (AUTO) 0.1 10^3/uL (0.0-0.7); EOSINOPHILS % (AUTO) 1.8 %; HCT - HEMATOCRIT 42.3 % (37.0-47.0); HGB - HEMOGLOBIN 14.2 g/dL (12.0-16.0); LYMPHOCYTES % (AUTO) 30.7 %; MEAN CORPUSCULAR HEMOGLOBIN 29.6 pg (27.0-31.0); MEAN CORPUSCULAR HGB CONC 33.6 g/dL (32.0-36.0); MEAN CORPUSCULAR VOLUME 88.1 fL (81.0-99.0); MEAN PLATELET VOLUME 10.2 fL (7.9-10.8); MONOCYTES # (AUTO) 0.4 10^3/uL (0.0-1.0); NEUTROPHILS # (AUTO) 3.9 10^3/uL (1.5-6.6); NEUTROPHILS % (AUTO) 60.1 %; PLT - PLATELET COUNT 223 10^3/uL (130-450); RED CELL DISTRIBUTION WIDTH 11.4 % (12.0-15.0); WHITE BLOOD COUNT 6.6 x10^3/uL (4.8-10.8)
[2022-10-30 12:21] LABS: ALBUMIN 4.2 g/dL (3.2-5.5); ALBUMIN/GLOBULIN RATIO 1.4 (1.0-2.2); ALKALINE PHOSPHATASE 56 IU/L (42-121); ALT ALANINE AMINOTRANSFERASE 21 IU/L (10-60); AST ASPARTATE AMINOTRANSFERASE 22 IU/L (10-42); BILIRUBIN,TOTAL 0.7 mg/dL (0.2-1.0); BUN - BLOOD UREA NITROGEN 16 mg/dL (6-20); CALCIUM 9.7 mg/dL (8.5-10.3); CARBON DIOXIDE - CO2 27 mmol/L (21-32); CHLORIDE 97 mmol/L (101-111); CHOL/HDL RATIO 2.6 (<4.4); CHOLESTEROL 158 mg/dL; CREATININE 0.8 mg/dL (0.4-1.0); GFR - MDRD 72 (>89); GLUCOSE 100 mg/dL (70-100); HDL CHOLESTEROL 60 mg/dL; LDL CHOLESTEROL,CALCULATED 88 mg/dL; LDL/HDL RATIO 1.5 (<4.4); POTASSIUM 4.4 mmol/L (3.5-5.0); SODIUM 136 mmol/L (135-145); TOTAL PROTEIN 7.3 g/dL (6.7-8.2); TRIGLYCERIDES 48 mg/dL; VLDL CHOLESTEROL 10 mg/dL
[2022-10-30 12:24] LABS: THYROID STIMULATING HORMONE 0.95 uIU/mL (0.34-5.60)
[2022-10-30 12:26] LABS: FREE T4 (FREE THYROXINE) 1.43 ng/dL (0.58-1.64)
== END 2022-10-30 11:35 | disposition home or self-care (01) ==
LOC: LAB 11:34
PROVIDERS: ATTEND Nurse Practitioner
DX: E87.1 Hypo-osmolality and hyponatremia (principal); E78.5 Hyperlipidemia, unspecified; E03.9 Hypothyroidism, unspecified; N63.0 Unspecified lump in unspecified breast
CPT/HCPCS: 36415; 80053; 80061; 83721; 84439; 84443; 85025

== ENCOUNTER 2022-10-30 11:50 | Outpatient (CLI) | payer OTHER ==
--- NOTE | 2022-10-30 12:51 | XRAY Report ---
PROCEDURE: Hip w/Pelvis 2-3V LT INDICATIONS: HIP PAIN,LEFT TECHNIQUE: AP pelvis with lateral view(s) of the left hip(s). COMPARISON: None. FINDINGS: Bones: No fractures or dislocations. No suspicious bony lesions. Mild periarticular osteophyte fo rmation at the bilateral hip joints. Soft tissues: No suspicious soft tissue calcifications or masses. IMPRESSION: Osteoarthritis. No acute fracture. No osseous lesion. If symptoms and/or clinical suspicion for patho logy continue, further assessment with repeat plain films, or advanced imaging (e.g., CT, MRI, or bon e scan) is recommended for further assessment. Reviewed by: Radha Moncada MD on 10/30/2022 11:50 AM DAGO Approved by: Radha Moncada MD on 10/30/2022 11:50 AM DAGO Station ID: [id number]
--- NOTE | 2022-10-30 12:52 | XRAY Report ---
PROCEDURE: Lumbar Spine 2 View INDICATIONS: SCIATICA,LEFT TECHNIQUE: 2 views of the lumbar spine were acquired. COMPARISON: None. FINDINGS: Bones: 5 [id number] vertebrae are present. Multilevel disc space narrowing and endplate osteophy te formation, as well as facet hypertrophy. There is normal bony alignment. No vertebral body compre ssion fractures. No suspicious bony lesions. Soft tissues: Overlying bowel gas pattern is normal. No suspicious soft tissue calcifications. IMPRESSION: Multilevel degenerative disc and facet disease. No acute fracture. No osseous lesion. If symptoms and/or clinical suspicion for pathology continue, further assessment with repeat plain film s, or advanced imaging (e.g., CT, MRI, or bone scan) is recommended for further assessment. Reviewed by: Radha Moncada MD on 10/30/2022 11:51 AM DAGO Approved by: Radha Moncada MD on 10/30/2022 11:51 AM DAGO Station ID: [id number]
--- NOTE | 2022-10-30 12:53 | XRAY Report ---
PROCEDURE: Knee 4 View LT INDICATIONS: KNEE PAIN,LEFT TECHNIQUE: 3 views of the left knee(s) were acquired. COMPARISON: None. FINDINGS: Bones: No fractures or dislocations. No suspicious bony lesions. Moderate tricompartment periarti cular osteophyte formation. Well-corticated ossific structure projects over the anterior compartment on the lateral view measuring 17 mm. Soft tissues: No knee joint effusion. No suspicious soft tissue calcifications or masses. IMPRESSION: 1. Osteoarthritis. 2. Probable intra-articular loose body. This could be further assessed with knee MRI, if clinically i ndicated. 3. No acute fracture. No osseous lesion. If symptoms and/or clinical suspicion for pathology continue , further assessment with repeat plain films, or advanced imaging (e.g., CT, MRI, or bone scan) is re commended for further assessment. Reviewed by: Radha Moncada MD on 10/30/2022 11:51 AM DAGO Approved by: Radha Moncada MD on 10/30/2022 11:51 AM DAGO Station ID: [id number]
== END 2022-10-30 11:51 | disposition home or self-care (01) ==
LOC: DI 11:50
PROVIDERS: ATTEND Nurse Practitioner
DX: M51.36 Other intervertebral disc degeneration, lumbar region (principal); M16.12 Unilateral primary osteoarthritis, left hip; M17.12 Unilateral primary osteoarthritis, left knee; E87.1 Hypo-osmolality and hyponatremia; E87.5 Hyperkalemia; E03.9 Hypothyroidism, unspecified; N63.0 Unspecified lump in unspecified breast
CPT/HCPCS: 36415; 80053; 80061; 83721; 84439; 84443; 85025

== ENCOUNTER 2022-11-09 09:27 | Outpatient (CLI) | payer OTHER ==
[2022-11-09] MEDS ORDERED: LIDOCAINE 1%-EPI 1:100000 20 ML MDV ONE (09:45)
[2022-11-09] MEDS ORDERED: LIDOCAINE-MPF 1% 5 ML VIAL ONE (09:45)
[2022-11-09] MEDS ORDERED: LIDOCAINE-MPF 1% 5 ML VIAL TD ONE (11:08)
[2022-11-09] MEDS ORDERED: LIDOCAINE 1%-EPI 1:100000 20 ML MDV SUBQ ONE (11:22)
--- NOTE | 2022-11-10 10:02 | Mammography Report ---
UNILATERAL LEFT DIGITAL DIAGNOSTIC MAMMOGRAM POST-PROCEDURE IMAGING FOR MARKER PLACEMENT: 11/09/2022 CLINICAL: Post left breast ultrasound biopsy clip placement imaging. Comparison is made to exams dated: 10/21/2022 mammogram, 09/23/2022 mammogram, 03/05/2021 mammogram, mammogram, 10/17/2018 mammogram, and 04/27/2017 mammogram - [facility]. There are scattered areas of fibroglandular density in the left breast (category b / 25%-50% glandula r tissue). There is a marker clip in the appropriate position in the left breast at 5 o'clock middle depth. Thi s marker clip placement is at the biopsy site. IMPRESSION: POST PROCEDURE MAMMOGRAM FOR MARKER PLACEMENT There was a successful marker clip placement in the left breast middle depth. Based on the Tyrer Cuzick model (a risk assessment model) the patients lifetime risk is 7.5% and her 10 year risk is 3.3%. According to the ACR, ACS, and NCCN guidelines, an annual breast MRI exam karuna g with mammogram is recommended if the patients lifetime risk is 20% or greater. This exam was interpreted at Station ID: [id number]. NOTE: For mammograms, a report in lay terms will be sent to the patient. Approximately 15% of breast malignancies will not be visualized mammographically. In the management of a palpable breast mass, a negative mammogram must not discourage biopsy of a clinically suspicious lesion. Electronically Signed By: Juliana Barragan M.D. lk/:11/09/2022 11:34:35 ACR BI-RADS Category Post-procedure mammogram for marker placement PARENCHYMAL PATTERN: (A) - The breast(s) demonstrate(s) scattered fibroglandular densities. BI-RADS CATEGORY: () - Unspecified - other recall n/a LATERALITY: (B)
--- NOTE | 2022-11-11 15:16 | Ultrasound Report ---
ULTRASOUND GUIDED BIOPSY LEFT BREAST USING VACUUM DEVICE WITH MARKING DEVICE INSERTED AND POST DIGITA L MAMMOGRAPHIC AND ULTRASOUND IMAGIN11/09/2022 CLINICAL: Left breast mass. PATIENT CONSENT: Risks (minor bleeding, infection, vasovagal reaction and repeat procedure), benefits and alternatives were explained to the patient and written informed consent was obtained. Correlation is made to exams dated: 10/21/2022 ultrasound, 10/21/2022 mammogram, 09/23/2022 mammogram, 03/05/2021 ultrasound, and 03/05/2021 mammogram - [facility]. An ultrasound guided biopsy using real-time ultrasound was performed for the 0.8 cm x 0.7 cm x 0.6 cm mass located in the left breast at 4 o'clock middle depth 4 cm from the nipple. The skin was preppe d in the usual manner. A 12 gauge biopsy needle was placed adjacent to the abnormality under ultraso und guidance. Once the needle was documented to be in the correct location, a specimen was obtained using the Mammotome biopsy system. A clip was inserted into the biopsy cavity. Post procedure digital mammographic and ultrasound imagi ng demonstrates the location device at the targeted area. The specimen was sent to the laboratory fo r pathological analysis. IMPRESSION: ULTRASOUND GUIDED BIOPSY MALIGNANT Ultrasound guided biopsy of the 0.8 cm x 0.7 cm x 0.6 cm mass in the left breast at 4 o'clock middle depth 4 cm from the nipple was successful. Pathology indicates malignant invasive ductal carcinoma (ID). Pathology results are concordant with imaging findings. A surgical/oncologic consultation is recommended. This exam was interpreted at Station ID: [id number]. Juliana guillen,slc/:11/11/2022 14:37:54 BI-RADS CATEGORY: () - Unspecified - other recall n/a LATERALITY: (B)
== END 2022-11-09 09:28 | disposition home or self-care (01) ==
LOC: DI 09:27
PROVIDERS: ATTEND Physician Assistant Medical
DX: C50.512 Malignant neoplasm of lower-outer quadrant of left female breast (principal); Z17.0 Estrogen receptor positive status [ER+]
CPT/HCPCS: 19083

== ENCOUNTER 2022-11-25 13:32 | Outpatient (CLI) | payer OTHER | END 2022-11-25 13:33 | disposition home or self-care (01) | LOC: LAB.N 13:32 | PROVIDERS: ATTEND Physician Assistant Medical | DX: R20.2 Paresthesia of skin (principal) | CPT/HCPCS: 36415; 82607; 85651; 86140 ==

== ENCOUNTER 2022-11-25 13:36 | Outpatient (CLI) | payer OTHER ==
--- NOTE | 2022-11-25 15:01 | XRAY Report ---
PROCEDURE: Forearm LT INDICATIONS: ARM PAIN LEFT INVASIVE DUCT CARCINOMA LEFT BREAST TECHNIQUE: 2 views of the forearm were acquired. COMPARISON: None FINDINGS: Bones: No fractures or dislocations. No suspicious bony lesions. Soft tissues: No suspicious soft tissue calcifications or masses. IMPRESSION: No acute bony abnormality. Reviewed by: Vitaliy Bey on 11/25/2022 3:00 PM PDT Approved by: Vitaliy Bey on 11/25/2022 3:00 PM PDT Station ID: [id number]
== END 2022-11-25 13:37 | disposition home or self-care (01) ==
LOC: LAB.N 13:36 → DI.N 13:37
PROVIDERS: ATTEND Physician Assistant Medical
DX: M79.602 Pain in left arm (principal); C50.912 Malignant neoplasm of unspecified site of left female breast; R20.2 Paresthesia of skin
CPT/HCPCS: 36415; 82607; 85651; 86140

== ENCOUNTER 2023-04-18 07:15 | Outpatient (CLI) | payer OTHER ==
[2023-04-18 12:25] LABS: BASOPHILS % (AUTO) 0.8 %; EOSINOPHILS # (AUTO) 0.1 10^3/uL (0.0-0.7); EOSINOPHILS % (AUTO) 1.8 %; HCT - HEMATOCRIT 43.3 % (37.0-47.0); LYMPHOCYTES # (AUTO) 1.3 10^3/uL (1.5-3.5); LYMPHOCYTES % (AUTO) 26.4 %; MEAN CORPUSCULAR HEMOGLOBIN 29.3 pg (27.0-31.0); MEAN CORPUSCULAR HGB CONC 32.3 g/dL (32.0-36.0); MEAN CORPUSCULAR VOLUME 90.6 fL (81.0-99.0); MONOCYTES # (AUTO) 0.4 10^3/uL (0.0-1.0); MONOCYTES % (AUTO) 8.5 %; NEUTROPHILS # (AUTO) 3.2 10^3/uL (1.5-6.6); NEUTROPHILS % (AUTO) 62.3 %; PLT - PLATELET COUNT 208 10^3/uL (130-450); RED BLOOD COUNT 4.78 10^6/uL (4.20-5.40); RED CELL DISTRIBUTION WIDTH 11.7 % (12.0-15.0); WHITE BLOOD COUNT 5.1 x10^3/uL (4.8-10.8)
[2023-04-18 12:39] LABS: ALBUMIN 4.5 g/dL (3.2-5.5); ALBUMIN/GLOBULIN RATIO 1.8 (1.0-2.2); BILIRUBIN,TOTAL 0.6 mg/dL (0.2-1.0); CALCIUM 10.4 mg/dL (8.5-10.3); CREATININE 0.7 mg/dL (0.6-1.3)
== END 2023-04-18 07:30 | disposition home or self-care (01) ==
LOC: LAB.N 07:15
PROVIDERS: ATTEND Family Medicine
DX: R10.9 Unspecified abdominal pain (principal)
CPT/HCPCS: 36415; 80053; 83690; 85025

== ENCOUNTER 2023-07-01 11:12 | Outpatient (CLI) | payer OTHER ==
--- NOTE | 2023-07-04 10:12 | Ultrasound Report ---
LIMITED ULTRASOUND OF LEFT BREAST- POST MASTECTOMY WITHOUT RECONSTRUCTION: 07/01/2023 CLINICAL: Post left mastectomy. Comparison is made to exams dated: 11/29/2022 breast MRI - [facility], 11/09/2022 ultrasound biopsy , 11/09/2022 mammogram, 10/21/2022 ultrasound, 10/21/2022 mammogram, and 09/23/2022 mammogram - [facility]. Color flow and real-time ultrasound of the left breast four quadrants and retroareolar regions were performed. Mccollum scale images of the real-time examination were reviewed. Status post left mastectomy. THere is a nonvascular, oval, [id number], heterogeneous hypoechoic collection at the site of the mastectomy measuring 6.2 cm x 1.7 cm x 4.0cm with internal debris and t hin sepatations. There is posterior acoustic enhancement. There are also a few subcutaneous, isoehcoic to fat oval masses in the left upper quadrant abdominal wall that are wider than tall and no associated suspicious vascularity or architectural distortion me asuring approximately 2.5 cm in maximum dimension. These are consistent with lipomas. IMPRESSION: PROBABLY BENIGN Probably benign 6.2 cm hypoechoic collection at the left mastectomy site likely representing a seroma /hematoma. Recommend 3 month follow up ultrasound to document stability versus resolution. A couple of incidental lipomas noted in the superficial subcutaneous soft tissues of the left upper q uadrant. Recommend clinical follow up. Findings and recommendations were conveyed to the patient during today's evaluation. This exam was interpreted at Station ID: [id number]. Electronically Signed By: Aron Leone M.D. aty/:07/01/2023 12:29:00 Ultrasound BI-RADS: 3 Probably benign BI-RADS CATEGORY: (3) - 3 Ultrasound [id number] 3 month follow-up LATERALITY: (L)
== END 2023-07-01 11:13 | disposition home or self-care (01) ==
LOC: DI 11:12
PROVIDERS: ATTEND Physician Assistant Medical
DX: M79.81 Nontraumatic hematoma of soft tissue (principal)

== ENCOUNTER 2023-07-05 10:21 | Outpatient (CLI) | payer OTHER ==
--- NOTE | 2023-07-05 11:01 | Sleep Patient Instructions ---
Sleep Center Visit Summary - Patient Visit Information Reason for Visit: Annual Visit - Patient Instructions Additional Instructions: You will continue with CPAP therapy with pressure set at 10-12 cmH2O. A supply prescription will be updated with your DME. I have added a mask fitting for full face mask. We encourage you to continue to try to lose weight. Please follow up with the sleep care office in 1 year. - Clinic Information Contact: [facility] [address] [place] [address] [email or web address] T: [phone]
--- NOTE | 2023-07-05 11:06 | SLEEP CARE CONSULTATION ---
Information from patient questionnaire entered by Dory Gan. I have reviewed and concur with the information entered by Dory Gan. This document represents the service I personally performed and the decisions made by me, Kalli Arredondo ARNP. History of Present Illness Service Date and Time: 07/05/2023 1021 Previous diagnosis: Moderate, Obstructive Sleep Apnea-Hypopnea Syndrome AHI: 23.9 (in 2019) Reason for follow up: annual (LAST SEEN 06/2022) Equipment type: CPAP (TODD, Dreamstation 2) Equipment obtained from: [employer] ([employer]; getting supplies as needed) Mask style: Nasal (over the nose) Mask brand: Resmed Backup mask available: Yes Last cushion change: 1 month Prior sleep studies: Yes Year and Where: 2019 - [facility] Type of Sleep Study: Polysomnography HPI additional information: ARAVIND LAZARO was diagnosed to have moderate, AHI 23.9, obstructive sleep apnea- hypopnea syndrome and returned today for CPAP therapy annual follow-up. Sleep Study - Results Type of Sleep Study: Polysomnography Prior sleep studies: Yes Year and Where: 2019 - [facility] CPAP Compliance Data - Data Reviewed with Patient Average duration of nightly device use: 4 HRS 43 MINS 44 SEC Compliance rate %: 70.4 (06/30/22-06/29/23; 307/365 days used) Current pressure setting (cmH2O): 10-12 Average residual AHI: 3.1 Central apnea: 0.2 Obstructive apnea: 1.2 Hypopnea: 1.7 Average large leak: 3 secs Subjective Missed days of use due to: reports: illness (breast cancer) Patient concerns: reports: dry mouth, nose, throat (tried chin strap, not work ing). denies: aerophagia, mask discomfort, air blowing in eyes, mask leak noise, condensation in mask/hose, nasal congestion, epistaxis Observed to snore while using device: No Current pressure setting perceived as: comfortable On therapy, patient: reports: sleeping better, awakening more refreshed, being more awake and alert during the day, more rested overall. denies: drowsiness while driving Initial Varnell Sleepiness Scale score: 11 (in 2019) Current Varnell Sleepiness Scale score: 8 Allergies and Home Medications Known drug allergies: Yes (as listed) Drug allergies reviewed: Yes Home medication list reviewed: Yes (Isosorbide Mononitrate ER 30 mg; Letrozole 2.5 mg) Allergy and home medication list: Allergies Sulfa (Sulfonamide Antibiotics) Allergy (Verified 06/30/23 17:43) Review of Systems Review of systems same as previous: No (Mastectomy on left, breast cancer) Physical Exam Vital signs obtained and entered by: Kalli Anton NP Blood Pressure: 132/76 Cuff size: regular (right arm) Heart Rate: 62 O2 Saturation: 99 Height: 5 ft 9 in Weight: 221 lb 6.4 oz Body Mass Index: 32.7 BMI Classification: Obese Impression and Plan 1. Obstructive Sleep Apnea-Hypopnea Syndrome, moderate, with good treatment compliance and good apnea control. On CPAP therapy, the patient has better sleep quality and is more rested overall. Patient has significant improvement of their sleep apnea and is satisfied with current CPAP therapy. Patient is still getting dry mouth occasionally. She tried a chinstrap but it did not really work for her. She would like to try a fullface mask that covers her mouth to see if this will help to reduce the dryness further. I fit her to a Blossom AirTouch F20, medium cushion, in the office today with a good fit. She is going to try this mask at home and I will add a mask refitting with her DME. If she wants to continue with this full face mask she just has to tell them and otherwise she can try other styles at that time. She voiced understanding and agreement with this plan of care. Patient's apnea severity and rationale for treatment to reduce apnea, improve sleep quality and reduce cardiovascular and cerebrovascular events was reviewed. I also reviewed the benefit of consistent device use of CPAP for hypertension, arrhythmia, gastric reflux, depression and anxiety. 2. Obesity, unspecified. Currently patients BMI is 32.7. Obesity increases the risk of apnea, CPAP pressure requirements and overall health risks especially cardiovascular and diabetes. Thus patient is advised to lose weight. * Continue auto CPAP pressure at 10-12 cmH2O * Mask refitting for full face mask * Update supply prescription * Notify me if snoring with mask or feeling that the pressure is too much or too little * Attempt to lose weight * Call this office if any problems using CPAP * Return for follow up in 12 months, or sooner if concerns arise Mask provided: Yes Counseling Topics: Spare mask, Weight loss health impact Visit Type: In Office Time Spent with Patient (minutes): 29 Provider Statement: I spent 100% of the Face to Face Visit with the patient with greater than 50% spent counseling the patient and coordination of care.
[2023-07-05 11:11] VITALS: BP 132/76; O2SAT 99
== END 2023-07-05 10:22 | disposition home or self-care (01) ==
LOC: SC 10:21
PROVIDERS: ATTEND Nurse Practitioner Family
DX: G47.33 Obstructive sleep apnea (adult) (pediatric) (principal); E66.9 Obesity, unspecified; Z68.32 Body mass index [BMI] 32.0-32.9, adult
CPT/HCPCS: 99212; 99213

== ENCOUNTER 2023-12-13 08:59 | Outpatient (CLI) | payer OTHER ==
[2023-12-13 12:12] LABS: BASOPHILS # (AUTO) 0.1 10^3/uL (0.0-0.1); EOSINOPHILS # (AUTO) 0.1 10^3/uL (0.0-0.7); EOSINOPHILS % (AUTO) 1.6 %; HCT - HEMATOCRIT 42.7 % (37.0-47.0); HGB - HEMOGLOBIN 14.2 g/dL (12.0-16.0); LYMPHOCYTES # (AUTO) 1.6 10^3/uL (1.5-3.5); LYMPHOCYTES % (AUTO) 25.2 %; MEAN CORPUSCULAR HEMOGLOBIN 29.8 pg (27.0-31.0); MEAN CORPUSCULAR HGB CONC 33.3 g/dL (32.0-36.0); MEAN CORPUSCULAR VOLUME 89.7 fL (81.0-99.0); MEAN PLATELET VOLUME 10.8 fL (7.9-10.8); MONOCYTES # (AUTO) 0.4 10^3/uL (0.0-1.0); MONOCYTES % (AUTO) 6.6 %; NEUTROPHILS # (AUTO) 4.1 10^3/uL (1.5-6.6); NEUTROPHILS % (AUTO) 65.3 %; PLT - PLATELET COUNT 206 10^3/uL (130-450); RED BLOOD COUNT 4.76 10^6/uL (4.20-5.40); RED CELL DISTRIBUTION WIDTH 12.2 % (12.0-15.0); WHITE BLOOD COUNT 6.2 x10^3/uL (4.8-10.8)
[2023-12-13 12:27] LABS: ALBUMIN 4.4 g/dL (3.2-5.5); ALBUMIN/GLOBULIN RATIO 1.5 (1.0-2.2); ALKALINE PHOSPHATASE 76 IU/L (42-121); ALT ALANINE AMINOTRANSFERASE 19 IU/L (10-60); AST ASPARTATE AMINOTRANSFERASE 20 IU/L (10-42); BILIRUBIN,TOTAL 0.7 mg/dL (0.2-1.0); BUN - BLOOD UREA NITROGEN 18 mg/dL (6-20); CALCIUM 10.5 mg/dL (8.5-10.3); CARBON DIOXIDE - CO2 29 mmol/L (21-32); CHLORIDE 99 mmol/L (101-111); CHOL/HDL RATIO 3.4 (<4.4); CHOLESTEROL 195 mg/dL; CREATININE 0.8 mg/dL (0.6-1.3); GFR - MDRD 72 (>89); GLUCOSE 102 mg/dL (74-104); HDL CHOLESTEROL 58 mg/dL; LDL CHOLESTEROL,CALCULATED 113 mg/dL; LDL/HDL RATIO 1.9 (<4.4); POTASSIUM 4.2 mmol/L (3.5-4.5); SODIUM 135 mmol/L (135-145); TOTAL PROTEIN 7.3 g/dL (6.4-8.9); TRIGLYCERIDES 118 mg/dL (48-352); VLDL CHOLESTEROL 24 mg/dL
[2023-12-13 12:42] LABS: THYROID STIMULATING HORMONE 1.45 uIU/mL (0.34-5.60)
== END 2023-12-13 09:00 | disposition home or self-care (01) ==
LOC: LAB.N 08:59
PROVIDERS: ATTEND Physician Assistant Medical
DX: I11.0 Hypertensive heart disease with heart failure (principal); E03.9 Hypothyroidism, unspecified; E78.5 Hyperlipidemia, unspecified
CPT/HCPCS: 36415; 80053; 80061; 83721; 84443; 85025

== ENCOUNTER 2023-12-29 10:38 | Outpatient (CLI) | payer OTHER ==
--- NOTE | 2023-12-30 09:24 | Mammography Report ---
UNILATERAL RIGHT DIGITAL SCREENING MAMMOGRAM 3D/2D: 12/29/2023 CLINICAL: Routine screening. Personal history of left breast cancer. Comparison is made to exams dated: 07/01/2023 ultrasound - [facility], 11/29/2022 [facility], 11/09/2022 ultrasound biopsy, 11/09/2022 mammogram, 10/21/2022 ultrasound, and 10/21/2022 mammogram - [facility]. There are scattered areas of fibroglandular density in the right breast (category b / 25%-50% glandul ar tissue). No significant masses, calcifications, or other findings are seen in the breast. There has been no significant interval change. IMPRESSION: NEGATIVE There is no mammographic evidence of malignancy. A 1 year screening mammogram is recommended. This exam was interpreted at Station ID: [id number]. NOTE: For mammograms, a report in lay terms will be sent to the patient. Approximately 15% of breast malignancies will not be visualized mammographically. In the management of a palpable breast mass, a negative mammogram must not discourage biopsy of a clinically suspicious lesion. Electronically Signed By: Philipp joyner/mari:12/29/2023 11:26:12 letter sent: No_Letter ACR BI-RADS Category 1: Negative 3341F PARENCHYMAL PATTERN: (A) - The breast(s) demonstrate(s) scattered fibroglandular densities. BI-RADS CATEGORY: (1) - 1 RECOMMENDATION: (ANNUAL) - Recommend routine annual screening mammography. [id number] 1 year screening LATERALITY: (B)
== END 2023-12-29 10:39 | disposition home or self-care (01) ==
LOC: DI.N 10:38
DX: Z12.31 Encounter for screening mammogram for malignant neoplasm of breast (principal); R92.321 Mammographic fibroglandular density, right breast; Z85.3 Personal history of malignant neoplasm of breast